=== PATIENT | female | born 1960 | race Hispanic/Latino ===

== ENCOUNTER 2017-07-06 13:12 | Outpatient (CLI) | payer BC ==
--- NOTE | 2017-07-06 14:07 | Mammography Report ---
Bilateral mammogram: Compared to 06/19/16. CAD study utilized. Findings: Predominance adipose tissue bilaterally. No mass or microcalcification. Benign axillary nodes. Impression: Benign findings. Annual followup recommended. BI-RADS CATEGORY: 2 = Benign ACR BI-RADS MAMMOGRAPHIC CODES: 0 = Needs additional imaging evaluation; 1 = Negative; 2 = Benign; 3 = Probably benign; 4 = Suspicious; 5 = Malignant; 6 = Known biopsy-proven malignancy COMMENT: 1. Dense breast tissue, i.e., adenosis, fibrocystic changes, etc., may obscure an underlying neoplasm. 2. Approximately 10% of cancers are not detected with mammography. 3. A negative mammography report should not delay biopsy if a clinically suspicious mass is present. COMMENT: Patient follow-up letters are generated in [employer].
== END 2017-07-06 13:13 | disposition home or self-care (01) ==
LOC: MAMMO 13:12
PROVIDERS: ATTEND Family Medicine
DX: Z12.31 Encounter for screening mammogram for malignant neoplasm of breast (principal)
CPT/HCPCS: 77067; G0202

== ENCOUNTER 2018-01-31 23:58 | Emergency (ER) | payer BC, OTHER ==
[2018-02-01 05:57] LABS: Basophils # (Auto) 0.1 K/mm3 (0.0-0.1); Basophils % (Auto) 0.8 % (0.0-1.8); Eosinophils # (Auto) 0.3 K/mm3 (0.0-0.4); Eosinophils % (Auto) 2.9 % (0.0-4.3); Hematocrit 34.8 % (30.3-42.9); Lymphocytes # (Auto) 1.8 K/mm3 (1.2-5.4); Lymphocytes % (Auto) 17.5 % (13.4-35.0); Mean Corpuscular HGB Conc 34 % (30-34); Mean Corpuscular Hemoglobin 28 pg (28-32); Mean Corpuscular Volume 80 fl (79-97); Monocytes % (Auto) 9.3 % (0.0-7.3); Platelet Count 493 K/mm3 (140-440); Red Blood Count 4.32 M/mm3 (3.65-5.03); Red Cell Distribution Width 16.2 % (13.2-15.2)
[2018-02-01 06:05] LABS: Calcium 9.4 mg/dL (8.4-10.2)
--- NOTE | 2018-02-01 07:05 | Emergency Department Report ---
ED General Adult HPI - General Chief complaint: Abdominal Pain Stated complaint: ABD PAIN Time Seen by Provider: 02/01/18 06:55 Source: patient, RN notes reviewed Mode of arrival: Ambulatory Limitations: No Limitations - History of Present Illness Initial comments: This is a 57-year-old female who was previously unknown to this provider, reports a past medical history of thyroid disease, schizophrenia, possible bowel obstruction. She denies a history of abdominal surgeries. She reports that she had been admitted to a hospital 7 or 8 years ago for "possible bowel obstruction." She indicates that she only stayed overnight in that hospital, and did not have any surgical intervention. The patient presents to the ER today with a complaint of inability to urinate. This has been present since Thursday. She denies abdominal pain, nausea, vomiting. She is passing gas, passing stool. She denies fevers. Denies all other complaints. -: Gradual Consistency: constant Improves with: none Worsens with: none Associated Symptoms: denies other symptoms - Related Data Home Medications Medication Instructions Recorded Confirmed Last Taken Iron Carb,Gl/FA/B12/C/Docusate 1 each PO DAILY 02/01/18 02/01/18 Unknown [Ferralet 90 Dual-Iron Tablet] Levothyroxine [Synthroid] 100 mcg PO QAM 02/01/18 02/01/18 Unknown Losartan/Hydrochlorothiazide 1 tab PO QDAY 02/01/18 02/01/18 Unknown [Losartan-Hctz 50-12.5 mg Tab] Montelukast [Singulair] 10 mg PO QPM 02/01/18 02/01/18 Unknown Verapamil [Calan] 240 mg PO DAILY 02/01/18 02/01/18 Unknown cloZAPine [Clozapine] 100 mg PO DAILY 02/01/18 02/01/18 Unknown Previous Rx's Medication Instructions Recorded Last Taken Type Nitrofurantoin Coal/M-Cryst 100 mg PO Q12HR #14 capsule 02/01/18 Unknown Rx [Macrobid CAP] Tamsulosin [Flomax] 0.4 mg PO QDAY #30 cap 02/01/18 Unknown Rx Allergies Allergy/AdvReac Type Severity Reaction Status Date / Time No Known Allergies Allergy Unverified 07/06/17 13:12 ED Review of Systems ROS: Stated complaint: ABD PAIN Other details as noted in HPI Comment: All other systems reviewed and negative ED Past Medical Hx - Past Medical History Hx Hypertension: Yes Hx Psychiatric Treatment: Yes (Schizophrenia) Additional medical history: Thyroid Disease, Allergies, Bowel Obstruction. - Surgical History Additional Surgical History: Tonsilectomy - Social History Smoking Status: Never Smoker Substance Use Type: None - Medications Home Medications: Home Medications Medication Instructions Recorded Confirmed Last Taken Type Iron Carb,Gl/FA/B12/C/Docusate 1 each PO DAILY 02/01/18 02/01/18 Unknown History [Ferralet 90 Dual-Iron Tablet] Levothyroxine [Synthroid] 100 mcg PO QAM 02/01/18 02/01/18 Unknown History Losartan/Hydrochlorothiazide 1 tab PO QDAY 02/01/18 02/01/18 Unknown History [Losartan-Hctz 50-12.5 mg Tab] Montelukast [Singulair] 10 mg PO QPM 02/01/18 02/01/18 Unknown History Nitrofurantoin Coal/M-Cryst 100 mg PO Q12HR #14 capsule 02/01/18 Unknown Rx [Macrobid CAP] Tamsulosin [Flomax] 0.4 mg PO QDAY #30 cap 02/01/18 Unknown Rx Verapamil [Calan] 240 mg PO DAILY 02/01/18 02/01/18 Unknown History cloZAPine [Clozapine] 100 mg PO DAILY 02/01/18 02/01/18 Unknown History ED Physical Exam - General Limitations: No Limitations General appearance: alert, in no apparent distress - Head Head exam: Present: atraumatic, normocephalic - Eye Eye exam: Present: normal appearance, EOMI. Absent: nystagmus - ENT ENT exam: Present: normal exam, normal orophraynx, mucous membranes moist, normal external ear exam - Neck Neck exam: Present: normal inspection, full ROM - Respiratory Respiratory exam: Present: normal lung sounds bilaterally. Absent: respiratory distress - Cardiovascular Cardiovascular Exam: Present: regular rate, normal rhythm, normal heart sounds. Absent: bradycardia, tachycardia, irregular rhythm, systolic murmur, diastolic murmur, rubs, gallop - GI/Abdominal GI/Abdominal exam: Present: soft, normal bowel sounds. Absent: distended, tenderness, guarding, rebound, rigid, pulsatile mass - Extremities Exam Extremities exam: Present: normal inspection, full ROM, normal capillary refill. Absent: pedal edema, joint swelling, calf tenderness - Back Exam Back exam: Present: normal inspection, full ROM. Absent: tenderness, CVA tenderness (R), paraspinal tenderness, vertebral tenderness - Neurological Exam Neurological exam: Present: alert, oriented X3, CN II-XII intact, normal gait, other (Extraocular movements intact. Tongue midline. No facial droop. Facial sensation intact to light touch in the V1, V2, V3 distribution bilaterally. 5 and 5 strength in 4 extremities.. Sensation is intact to light touch in 4 extremities.). Absent: motor sensory deficit - Psychiatric Psychiatric exam: Present: normal affect, normal mood - Skin Skin exam: Present: warm, dry, intact, normal color. Absent: rash ED Course Vital Signs 02/01/18 04:10 Temperature 97.9 F Pulse Rate 97 H Respiratory 16 Rate Blood Pressure 112/62 O2 Sat by Pulse 98 Oximetry ED Medical Decision Making - Lab Data Result diagrams: 02/01/18 05:16 02/01/18 05:16 Vital Signs 02/01/18 04:10 Temperature 97.9 F Pulse Rate 97 H Respiratory 16 Rate Blood Pressure 112/62 O2 Sat by Pulse 98 Oximetry Lab Results 02/01/18 02/01/18 Range/Units 05:16 05:16 WBC 10.5 (4.5-11.0) K/mm3 RBC 4.32 (3.65-5.03) M/mm3 Hgb 12.0 (10.1-14.3) gm/dl Hct 34.8 (30.3-42.9) % MCV 80 (79-97) fl MCH 28 (28-32) pg MCHC 34 (30-34) % RDW 16.2 H (13.2-15.2) % Plt Count 493 H (140-440) K/mm3 Lymph % (Auto) 17.5 (13.4-35.0) % Coal % (Auto) 9.3 H (0.0-7.3) % Eos % (Auto) 2.9 (0.0-4.3) % Baso % (Auto) 0.8 (0.0-1.8) % Lymph # 1.8 (1.2-5.4) K/mm3 Coal # 1.0 H (0.0-0.8) K/mm3 Eos # 0.3 (0.0-0.4) K/mm3 Baso # 0.1 (0.0-0.1) K/mm3 Seg Neutrophils % 69.5 (40.0-70.0) % Seg Neutrophils # 7.3 (1.8-7.7) K/mm3 Sodium 141 (137-145) mmol/L Potassium 3.9 (3.6-5.0) mmol/L Chloride 102.0 (98-107) mmol/L Carbon Dioxide 24 (22-30) mmol/L Anion Gap 19 mmol/L BUN 30 H (7-17) mg/dL Creatinine 1.2 (0.7-1.2) mg/dL Estimated GFR 46 ml/min BUN/Creatinine Ratio 25 % Glucose 107 H (65-100) mg/dL Calcium 9.4 (8.4-10.2) mg/dL - Medical Decision Making Differential diagnosis, including but not limited to: Urinary tract infection, obstructive uropathy, pelvic floor dysfunction, Assessment and plan: 57-year-old female with clinical obstructive uropathy. She has no abdominal pain or tenderness, she is defecating, eating, drinking, passing stool, passing flatness. She denies fevers, and abdominal pain. Therefore, doubt bowel obstruction. Physical exam is benign does not require emergent imaging at this time. Mcdaniel catheter was placed, and 150 mL of clear yellow urine were returned. Patient is currently draining urine at this time. I am currently awaiting a medication reconciliation. Patient will be since to follow up with outpatient urology for trial of void and further outpatient workup. Critical care attestation.: If time is entered above; I have spent that time in minutes in the direct care of this critically ill patient, excluding procedure time. ED Disposition Clinical Impression: Obstructive uropathy Disposition: DC-01 TO HOME OR SELFCARE Is pt being admited?: No Does the pt Need Aspirin: No Condition: Stable Instructions: Acute Urinary Retention in Women (ED) Additional Instructions: Keep the Mcdaniel catheter in place. Follow-up with the listed urology specialist within the next 5-7 days for trial of void. Cultures were sent today, results of be available in the next 3-5 days. Have your primary care doctor contact the medical record department to obtain culture results. Return to the ER right away with you pain, worsened pain, migration of pain, fevers, chills, lethargy, irritability, projectile vomiting, change in mental status, confusion , inability to tolerate liquid feeds. Prescriptions: Nitrofurantoin Coal/M-Cryst [Macrobid CAP] 100 mg PO Q12HR #14 capsule Tamsulosin [Flomax] 0.4 mg PO QDAY #30 cap Referrals: SELAM ROLLE MD [Staff Physician] - 3-5 Days
[2018-02-01 08:32] LABS: Bacteria,Urine 2+ /HPF (Negative); Bilirubin,Urine NEG (Negative); Blood,Urine NEG (Negative); Color,Urine Red (Yellow); Mucus,Urine FEW /HPF; Protein,Urine <15 mg/dL mg/dL (Negative); Urobilinogen,Urine < 2.0 mg/dL (<2.0)
[2018-02-01 08:55] VITALS: BP 108/49
== END 2018-02-01 09:30 | disposition home or self-care (01) ==
LOC: ED 23:58
DX: N13.9 Obstructive and reflux uropathy, unspecified (principal); I10 Essential (primary) hypertension; F20.9 Schizophrenia, unspecified; Z90.89 Acquired absence of other organs
CPT/HCPCS: 36415; 51702; 80048; 81001; 85025; 87086

== ENCOUNTER 2018-02-03 23:45 | Emergency (ER) | payer OTHER ==
[2018-02-04 00:02] VITALS: BP 125/43
--- NOTE | 2018-02-04 00:47 | Emergency Department Report ---
ED Female HPI - General Chief complaint: Urogenital-Female Stated complaint: CAN'T PEE Time Seen by Provider: 02/04/18 00:47 Source: patient Mode of arrival: Ambulatory Limitations: No Limitations - History of Present Illness Initial comments: Patient with indwelling Mcdaniel catheter for the past several days as a result of urinary retention, reports not being able to pass urine, with increasing lower abdominal discomfort, with a sense of urgency and constant sense of needing to urinate with a full bladder. She's not had any fever or chills or diaphoresis, and has not noticed any blood in her catheter bag. She was prescribed an antibiotic, but has not yet filled it, but has not had any constitutional symptoms. She reports not have any urine in her back for several hours this evening, but that it has just recently begun draining urine again after she arrived in the emergency department, although she still feels somewhat uncomfortable. -: Gradual, hour(s) (3-4) Radiation: non-radiating Severity: moderate Severity scale (0 -10): 8 Quality: sharp, aching, other (pressure-like, pushing) Consistency: constant - Related Data Home Medications Medication Instructions Recorded Confirmed Last Taken Iron Carb,Gl/FA/B12/C/Docusate 1 each PO DAILY 02/01/18 02/01/18 Unknown [Ferralet 90 Dual-Iron Tablet] Levothyroxine [Synthroid] 100 mcg PO QAM 02/01/18 02/01/18 Unknown Losartan/Hydrochlorothiazide 1 tab PO QDAY 02/01/18 02/01/18 Unknown [Losartan-Hctz 50-12.5 mg Tab] Montelukast [Singulair] 10 mg PO QPM 02/01/18 02/01/18 Unknown Verapamil [Calan] 240 mg PO DAILY 02/01/18 02/01/18 Unknown cloZAPine [Clozapine] 100 mg PO DAILY 02/01/18 02/01/18 Unknown Previous Rx's Medication Instructions Recorded Last Taken Type Nitrofurantoin [place]/M-Cryst 100 mg PO Q12HR #14 capsule 02/01/18 Unknown Rx [Macrobid CAP] Tamsulosin [Flomax] 0.4 mg PO QDAY #30 cap 02/01/18 Unknown Rx HYDROcodone/APAP 5-325 [[place] 1 - 2 each PO Q6HR PRN #15 tablet 02/04/18 Unknown Rx 5/325] Phenazopyridine [Pyridium] 200 mg PO TID PRN #10 tab 02/04/18 Unknown Rx Sulfamethoxazole/Trimethoprim 1 each PO BID #10 tablet 02/04/18 Unknown Rx [Bactrim DS TAB] Allergies Allergy/AdvReac Type Severity Reaction Status Date / Time No Known Allergies Allergy Unverified 07/06/17 13:12 ED Review of Systems ROS: Stated complaint: CAN'T PEE Other details as noted in HPI Comment: All other systems reviewed and negative Constitutional: denies: chills, diaphoresis, fever Eyes: denies: eye pain, eye discharge, vision change ENT: denies: ear pain, throat pain Respiratory: no symptoms reported Cardiovascular: as per HPI Endocrine: no symptoms reported Gastrointestinal: abdominal pain (lower abdomen), other (symptoms of urgency) Genitourinary: urgency. denies: hematuria Musculoskeletal: denies: back pain, joint swelling, arthralgia Skin: denies: rash, lesions Neurological: denies: headache, weakness, paresthesias Psychiatric: denies: anxiety, depression ED Past Medical Hx - Past Medical History Previous Medical History?: Yes Hx Hypertension: Yes Hx Psychiatric Treatment: Yes (Schizophrenia) Additional medical history: Thyroid Disease, Allergies, Bowel Obstruction. - Surgical History Past Surgical History?: Yes Additional Surgical History: Tonsilectomy - Social History Smoking Status: Never Smoker Substance Use Type: None - Medications Home Medications: Home Medications Medication Instructions Recorded Confirmed Last Taken Type Iron Carb,Gl/FA/B12/C/Docusate 1 each PO DAILY 02/01/18 02/01/18 Unknown History [Ferralet 90 Dual-Iron Tablet] Levothyroxine [Synthroid] 100 mcg PO QAM 02/01/18 02/01/18 Unknown History Losartan/Hydrochlorothiazide 1 tab PO QDAY 02/01/18 02/01/18 Unknown History [Losartan-Hctz 50-12.5 mg Tab] Montelukast [Singulair] 10 mg PO QPM 02/01/18 02/01/18 Unknown History Nitrofurantoin King/M-Cryst 100 mg PO Q12HR #14 capsule 02/01/18 Unknown Rx [Macrobid CAP] Tamsulosin [Flomax] 0.4 mg PO QDAY #30 cap 02/01/18 Unknown Rx Verapamil [Calan] 240 mg PO DAILY 02/01/18 02/01/18 Unknown History cloZAPine [Clozapine] 100 mg PO DAILY 02/01/18 02/01/18 Unknown History HYDROcodone/APAP 5-325 [[place] 1 - 2 each PO Q6HR PRN #15 tablet 02/04/18 Unknown Rx 5/325] Phenazopyridine [Pyridium] 200 mg PO TID PRN #10 tab 02/04/18 Unknown Rx Sulfamethoxazole/Trimethoprim 1 each PO BID #10 tablet 02/04/18 Unknown Rx [Bactrim DS TAB] ED Physical Exam - General Limitations: No Limitations General appearance: anxious, in distress (moderate discomfort, from constant abdominal pressure and aching) - Head Head exam: Present: atraumatic, normocephalic - Eye Eye exam: Present: normal appearance - ENT ENT exam: Present: mucous membranes moist - Neck Neck exam: Present: normal inspection - Respiratory Respiratory exam: Present: normal lung sounds bilaterally. Absent: respiratory distress - Cardiovascular Cardiovascular Exam: Present: regular rate, normal rhythm. Absent: systolic murmur, diastolic murmur, rubs, gallop - GI/Abdominal GI/Abdominal exam: Present: soft, tenderness (suprapubic area, without mass). Absent: guarding, rebound - Rectal Rectal exam: Present: deferred - Extremities Exam Extremities exam: Present: normal inspection - Back Exam Back exam: Absent: CVA tenderness (R), CVA tenderness (L), muscle spasm, paraspinal tenderness - Neurological Exam Neurological exam: Present: alert, oriented X3 - Psychiatric Psychiatric exam: Present: normal affect, normal mood - Skin Skin exam: Present: warm, dry, intact, normal color. Absent: rash ED Course Vital Signs 02/03/18 02/04/18 23:56 02:24 Temperature 98.1 F Pulse Rate 98 H Respiratory 18 18 Rate Blood Pressure 125/43 O2 Sat by Pulse 96 Oximetry - Reevaluation(s) Reevaluation #1: 02/04/18 01:54 Bladder scan performed, shows 199 mL of retained urine, but bag is continuing to drink clear urine. She still has some moderate discomfort. ED Medical Decision Making - Medical Decision Making Patient has signs of urinary tract infection with indwelling Mcdaniel catheter and since of bladder distention and constant discomfort. She did not take her antibiotics, and we will change her Mcdaniel catheter, but treat her for infection , treat her discomfort with phenazopyridine and hydrocodone. She is to follow with urologist later today. - Differential Diagnosis urinary retention, urinary tract infection Critical Care Time: No Critical care attestation.: If time is entered above; I have spent that time in minutes in the direct care of this critically ill patient, excluding procedure time. ED Disposition Clinical Impression: Acute trigonitis, Urinary retention with incomplete bladder emptying Urinary tract infection Qualifiers: Urinary tract infection type: catheter-associated UTI Indwelling urinary catheter type: indwelling urethral catheter Encounter type: initial encounter Qualified Code(s): T83.511A - Infection and inflammatory reaction due to indwelling urethral catheter, initial encounter Disposition: TO HOME OR SELFCARE Is pt being admited?: No Does the pt Need Aspirin: No Condition: Stable Additional Instructions: Continue with Bactrim for antibiotic control of infection Take Pyridium for discomfort up to 3 times per day Take hydrocodone for significant pain. Follow with urologist later today for further evaluation. Prescriptions: HYDROcodone/APAP 5-325 [[place] 5/325] 1 - 2 each PO Q6HR PRN #15 tablet PRN Reason: Pain Phenazopyridine [Pyridium] 200 mg PO TID PRN #10 tab PRN Reason: Pain Sulfamethoxazole/Trimethoprim [Bactrim DS TAB] 1 each PO BID #10 tablet
[2018-02-04] MEDS ORDERED: PYRIDIUM PO ONE (01:48)
[2018-02-04] MEDS ORDERED: BACTRIM DS PO ONE (01:49)
[2018-02-04] MEDS ORDERED: NORCO 7.5/325 PO ONE (01:49)
[2018-02-04 02:22] LABS: Bacteria,Urine 2+ /HPF (Negative); Bilirubin,Urine NEG (Negative); Blood,Urine LG (Negative); Color,Urine Yellow (Yellow); Protein,Urine <15 mg/dL mg/dL (Negative); Urobilinogen,Urine < 2.0 mg/dL (<2.0)
== END 2018-02-04 03:30 | disposition home or self-care (01) ==
LOC: ED 23:45
DX: T83.511A Infection and inflammatory reaction due to indwelling urethral catheter, initial encounter (principal); N30.30 Trigonitis without hematuria; R33.8 Other retention of urine; I10 Essential (primary) hypertension; F20.9 Schizophrenia, unspecified; Z90.89 Acquired absence of other organs; Y84.6 Urinary catheterization as the cause of abnormal reaction of the patient, or of later complication, without mention of misadventure at the time of the procedure; Y92.89 Other specified places as the place of occurrence of the external cause
CPT/HCPCS: 51702; 81001; 87076; 87086; 87186

== ENCOUNTER 2018-02-08 10:39 | Emergency (ER) | payer OTHER ==
--- NOTE | 2018-02-08 12:26 | Emergency Department Report ---
Blank Doc - Documentation Documentation: Patient is a 57-year-old female who is presenting with blood in her Mcdaniel catheter bag. Patient states that she has had a Mcdaniel for approximately 1 week secondary to urinary retention. Patient is a urology follow-up tomorrow. Patient noted that there is blood in her urine for last 24 hours. Patient also feels a fullness in the suprapubic region. Patiently moved to a treatment room for replacement of her Mcdaniel catheter will also check a urinalysis as well.
--- NOTE | 2018-02-08 12:26 | Emergency Department Report ---
ED Female HPI - General Chief complaint: Urogenital-Female Stated complaint: RUPURTED BLADDER Time Seen by Provider: 02/08/18 12:00 Source: patient Mode of arrival: Ambulatory Limitations: No Limitations - History of Present Illness Initial comments: 57-year-old female past medical history hypertension presents for complaint of sensation of bladder fullness despite having indwelling Mccord catheter and report of blood in urine in Mccord bag. Patient denies fevers chills nausea or vomiting. Patient states that she had Mccord placed on 01/31/18 8 days ago for urine retention and failure to void independently. Patient is awake alert and oriented 3 and nontoxic appearing. States she is currently taking Bactrim for UTI. MD Complaint: other (mccord cather issue) Onset/Timin -: days(s) Location: suprapubic Radiation: suprapubic Severity: mild Severity scale (0 -10): 4 Quality: aching Consistency: intermittent Improves with: urination - Related Data Home Medications Medication Instructions Recorded Confirmed Last Taken Iron Carb,Gl/FA/B12/C/Docusate 1 each PO DAILY 02/01/18 02/01/18 Unknown [F[place] 90 Dual-Iron Tablet] Levothyroxine [Synthroid] 100 mcg PO QAM 02/01/18 02/01/18 Unknown Losartan/Hydrochlorothiazide 1 tab PO QDAY 02/01/18 02/01/18 Unknown [Losartan-Hctz 50-12.5 mg Tab] Montelukast [Singulair] 10 mg PO QPM 02/01/18 02/01/18 Unknown Verapamil [Calan] 240 mg PO DAILY 02/01/18 02/01/18 Unknown cloZAPine [Clozapine] 100 mg PO DAILY 02/01/18 02/01/18 Unknown Previous Rx's Medication Instructions Recorded Last Taken Type Nitrofurantoin [place]/M-Cryst 100 mg PO Q12HR #14 capsule 02/01/18 Unknown Rx [Macrobid CAP] Tamsulosin [Flomax] 0.4 mg PO QDAY #30 cap 02/01/18 Unknown Rx HYDROcodone/APAP 5-325 [[place] 1 - 2 each PO Q6HR PRN #15 tablet 02/04/18 Unknown Rx 5/325] Phenazopyridine [Pyridium] 200 mg PO TID PRN #10 tab 02/04/18 Unknown Rx Sulfamethoxazole/Trimethoprim 1 each PO BID #10 tablet 02/04/18 Unknown Rx [Bactrim DS TAB] Ciprofloxacin HCl [Cipro] 500 mg PO BID #14 tablet 02/08/18 Unknown Rx Allergies Allergy/AdvReac Type Severity Reaction Status Date / Time No Known Allergies Allergy Unverified 07/06/17 13:12 ED Review of Systems ROS: Stated complaint: RUPURTED BLADDER Other details as noted in HPI Constitutional: denies: chills, fever Eyes: denies: eye pain, eye discharge, vision change ENT: denies: ear pain, throat pain Respiratory: denies: cough, shortness of breath, wheezing Cardiovascular: denies: chest pain, palpitations Endocrine: no symptoms reported Gastrointestinal: denies: abdominal pain, nausea, diarrhea Genitourinary: as per HPI, urgency. denies: dysuria, discharge Musculoskeletal: denies: back pain, joint swelling, arthralgia Skin: denies: rash, lesions Neurological: denies: headache, weakness, paresthesias Psychiatric: denies: anxiety, depression Hematological/Lymphatic: denies: easy bleeding, easy bruising ED Past Medical Hx - Past Medical History Previous Medical History?: Yes Hx Hypertension: Yes Hx Psychiatric Treatment: Yes (Schizophrenia) Additional medical history: Thyroid Disease, Allergies, Bowel Obstruction. Urinary retention - Surgical History Past Surgical History?: Yes Additional Surgical History: Tonsilectomy - Social History Smoking Status: Never Smoker Substance Use Type: Prescribed - Medications Home Medications: Home Medications Medication Instructions Recorded Confirmed Last Taken Type Iron Carb,Gl/FA/B12/C/Docusate 1 each PO DAILY 02/01/18 02/01/18 Unknown History [Ferralet 90 Dual-Iron Tablet] Levothyroxine [Synthroid] 100 mcg PO QAM 02/01/18 02/01/18 Unknown History Losartan/Hydrochlorothiazide 1 tab PO QDAY 02/01/18 02/01/18 Unknown History [Losartan-Hctz 50-12.5 mg Tab] Montelukast [Singulair] 10 mg PO QPM 02/01/18 02/01/18 Unknown History Nitrofurantoin [place]/M-Cryst 100 mg PO Q12HR #14 capsule 02/01/18 Unknown Rx [Macrobid CAP] Tamsulosin [Flomax] 0.4 mg PO QDAY #30 cap 02/01/18 Unknown Rx Verapamil [Calan] 240 mg PO DAILY 02/01/18 02/01/18 Unknown History cloZAPine [Clozapine] 100 mg PO DAILY 02/01/18 02/01/18 Unknown History HYDROcodone/APAP 5-325 [[place] 1 - 2 each PO Q6HR PRN #15 tablet 02/04/18 Unknown Rx 5/325] Phenazopyridine [Pyridium] 200 mg PO TID PRN #10 tab 02/04/18 Unknown Rx Sulfamethoxazole/Trimethoprim 1 each PO BID #10 tablet 02/04/18 Unknown Rx [Bactrim DS TAB] Ciprofloxacin HCl [Cipro] 500 mg PO BID #14 tablet 02/08/18 Unknown Rx ED Physical Exam - General Limitations: No Limitations General appearance: alert, in no apparent distress - Head Head exam: Present: atraumatic, normocephalic - Eye Eye exam: Present: normal appearance, PERRL, EOMI - ENT ENT exam: Present: mucous membranes moist - Neck Neck exam: Present: normal inspection - Respiratory Respiratory exam: Present: normal lung sounds bilaterally. Absent: respiratory distress - Cardiovascular Cardiovascular Exam: Present: regular rate, normal rhythm. Absent: systolic murmur, diastolic murmur, rubs, gallop - GI/Abdominal GI/Abdominal exam: Present: tenderness (slight suprapubic tenderness on palpation, Mccord catheter in place), normal bowel sounds - Extremities Exam Extremities exam: Present: normal inspection - Back Exam Back exam: Present: normal inspection - Neurological Exam Neurological exam: Present: alert, oriented X3 - Psychiatric Psychiatric exam: Present: normal affect, normal mood - Skin Skin exam: Present: warm, dry, intact, normal color. Absent: rash ED Course Vital Signs 02/08/18 10:43 Temperature 98.6 F Pulse Rate 93 H Respiratory 20 Rate Blood Pressure 123/66 O2 Sat by Pulse 95 Oximetry ED Medical Decision Making - Medical Decision Making A/P: Urinary tract infection, Mccord catheter hemorrhagic cystitis 1-Mccord catheter placed, draining. I used ultrasound to confirm placement. On bedside ultrasound Mccord catheter lumen is visible and inside bladder. Bladder does not appear distended. Patient is put out approximately 3-400 mL since changing Mccord catheter. It is possible it was obstructed briefly by either position or small clot secondary to hemorrhagic cystitis. Patient feels significant relief after Mccord change and urine is draining through catheter. 2-patient given trial of void. Stated she was unable to void on her own will replace Mccord catheter and patient can follow up tomorrow with her second appointment with outpatient neurology 3-patient has urine sample which is nitrites positive. Will switch the patient from Bactrim to course of ciprofloxacin. urine culture sent. 4- vital signs stable for discharge. Patient tolerating by mouth. Afebrile. Mccord catheter currently draining without difficulty. Critical care attestation.: If time is entered above; I have spent that time in minutes in the direct care of this critically ill patient, excluding procedure time. ED Disposition Clinical Impression: Cystitis, Encounter for Mccord catheter replacement Disposition: TO HOME OR SELFCARE Is pt being admited?: No Does the pt Need Aspirin: No Condition: Stable Instructions: Urinary Tract Infection in Women (ED), Mccord Catheter Insertion ( ED), Mccord Catheter Placement and Care (ED), Urinary Leg Bag (GEN) Additional Instructions: Patient advised to follow-up with her urology appt Prescriptions: Ciprofloxacin HCl [Cipro] 500 mg PO BID #14 tablet Referrals: JESSE BRAUN DO [Primary Care Provider] - 3-5 Days [facility] [Provider Group] - 3-5 Days Time of Disposition: 15:11
[2018-02-08 14:46] LABS: Bacteria,Urine 4+ /HPF (Negative); Bilirubin,Urine NEG (Negative); Blood,Urine LG (Negative); Color,Urine Amber (Yellow); Mucus,Urine FEW /HPF; Protein,Urine <15 mg/dL mg/dL (Negative)
[2018-02-08 16:06] VITALS: BP 132/57
== END 2018-02-08 16:08 | disposition home or self-care (01) ==
LOC: ED 10:39
DX: N30.90 Cystitis, unspecified without hematuria (principal); I10 Essential (primary) hypertension; F20.9 Schizophrenia, unspecified
CPT/HCPCS: 51702; 81001; 87086; 99282

== ENCOUNTER 2019-04-13 18:07 | Emergency (ER) | payer OTHER ==
[2019-04-13 18:15] VITALS: BP 110/84
--- NOTE | 2019-04-13 18:15 | Emergency Department Report ---
Blank Doc - Documentation Documentation: This is a 58-year-old female that presents with abdominal pain. Stated has not been able to have a bowel movement for 4 days. This initial assessment/diagnostic orders/clinical plan/treatment(s) is/are subject to change based on patient's health status, clinical progression and re- assessment by fellow clinical providers in the ED. Further treatment and workup at subsequent clinical providers discretion. Patient/guardians urged not to elope from the ED as their condition may be serious if not clinically assessed and managed. Initial orders include: 1- Patient sent to [facility] for further evaluation and treatment 2- labs 3- XR abd
[2019-04-13 18:50] LABS: Basophils % (Auto) 0.3 % (0.0-1.8); Eosinophils # (Auto) 0.1 K/mm3 (0.0-0.4); Eosinophils % (Auto) 1.1 % (0.0-4.3); Hematocrit 33.3 % (30.3-42.9); Lymphocytes # (Auto) 1.1 K/mm3 (1.2-5.4); Lymphocytes % (Auto) 8.8 % (13.4-35.0); Mean Corpuscular HGB Conc 33 % (30-34); Mean Corpuscular Volume 81 fl (79-97); Monocytes # (Auto) 0.8 K/mm3 (0.0-0.8); Monocytes % (Auto) 6.6 % (0.0-7.3); Platelet Count 476 K/mm3 (140-440); Red Blood Count 4.12 M/mm3 (3.65-5.03); Red Cell Distribution Width 15.4 % (13.2-15.2)
--- NOTE | 2019-04-13 19:19 | XRay Report ---
ACUTE ABDOMINAL SERIES INDICATION / CLINICAL INFORMATION: Abdominal pain; no bowel movement for 4 days. COMPARISON: None available. FINDINGS: Upright and supine views of the abdomen demonstrate multiple dilated featureless bowel loops in the u pper and lower abdomen with differential air-fluid levels. The distribution is somewhat unusual and t he findings may represent a combination of dilated colon and small bowel or just dilated small bowel. Has the patient had bowel surgery High-grade distal small bowel obstruction is suspected. I see no e vidence of free air or mass effect. The accompanying chest radiograph reveals a normal heart size and clear lungs. IMPRESSION: Abnormal bowel gas pattern is nonspecific, but characteristic of obstruction. High-grade small bowel obstruction is suspected. Signer Name: Melvin Stockton MD Signed: 04/13/2019 7:15 PM Workstation Name: [id number]
[2019-04-13 19:25] LABS: Calcium 9.7 mg/dL (8.4-10.2)
[2019-04-13 20:07] LABS: Bilirubin,Urine NEG (Negative); Blood,Urine NEG (Negative); Color,Urine Straw (Yellow); Mucus,Urine FEW /HPF; Protein,Urine <15 mg/dL mg/dL (Negative); Urobilinogen,Urine < 2.0 mg/dL (<2.0)
--- NOTE | 2019-04-13 21:42 | Cat Scan Report ---
CT abdomen pelvis w con INDICATION: abdominal pain. Constipation x4 days. TECHNIQUE: All CT scans at this location are performed using the following dose modulation technique: Automated exposure control. Limited by respiratory artifact. CONTRAST: Omnipaque 300, 100 cc IV injection. COMPARISON: None available. CT abdomen: The parenchymal organs are grossly unremarkable. Negative for abdominal mass, adenopathy or fluid collection. Atherosclerotic calcification is noted the aorta. Colon is mildly distended and thick-walled. CT PELVIS: Negative for pelvic mass or fluid. Moderate colonic stool is seen distally. IMPRESSION: 1. Suspect mild colitis. Moderate colonic stool is noted distally. 2. Evaluation limited by significant respiratory artifact. Signer Name: Alli Gonzalez MD Signed: 04/13/2019 9:37 PM Workstation Name: [id number]
[2019-04-13] MEDS ORDERED: FLAGYL 500 MG/100 ML 500 MG/100 ML BAG IV ONE (22:25)
[2019-04-13] MEDS ORDERED: LEVAQUIN PO ONE (22:25)
[2019-04-13] MEDS ORDERED: MORPHINE IV ONE (22:26)
[2019-04-13] MEDS ORDERED: ZOFRAN IV ONE (22:26)
[2019-04-13] MEDS ORDERED: CITRATE OF MAGNESIA PO ONE (22:46)
[2019-04-13] MEDS ORDERED: ZOFRAN ODT PO ONE (23:54)
[2019-04-13] MEDS ORDERED: ZOFRAN ODT ONE (23:55)
[2019-04-14] MEDS ORDERED: REGLAN IV ONE (00:14)
[2019-04-14] MEDS ORDERED: CITRATE OF MAGNESIA PO ONE (00:14)
--- NOTE | 2019-04-14 01:13 | Emergency Department Report ---
ED Abdominal Pain HPI - General Chief Complaint: Abdominal Pain Stated Complaint: CONSTIPATED Time Seen by Provider: 04/13/19 18:14 Source: patient Mode of arrival: Ambulatory Limitations: No Limitations - History of Present Illness Initial Comments: Patient is a 58-year-old white female with history of hypertension presents to the ED with a complaint of acute onset of persistent diffuse abdominal pain and nausea the last 4 days. Patient also states that she has not had any bowel movement in 4 days which is not normal for her. Patient denies dysuria, urinary frequency and urgency, dizziness, headache, chest pain, shortness of breath, cough, fever, chills, vaginal bleeding, diarrhea, or sore throat. MD Complaint: abdominal pain, other (Constipation) -: Sudden, days(s) (4) Location: diffuse, suprapubic Radiation: suprapubic Migration to: no migration Severity: moderate Severity scale (0 -10): 6 Quality: cramping, aching, sharp Consistency: constant Improves With: nothing Worsens With: nothing Associated Symptoms: denies other symptoms, nausea, constipation. denies: vomiting, diarrhea, fever, chills, dysuria, hematemesis, hematochezia, melena, hematuria, anorexia, syncope - Related Data Home Medications Medication Instructions Recorded Confirmed Last Taken Iron Carb,Gl/FA/B12/C/Docusate 1 each PO DAILY 02/01/18 02/01/18 Unknown [Ferralet 90 Dual-Iron Tablet] Levothyroxine [Synthroid] 100 mcg PO QAM 02/01/18 02/01/18 Unknown Losartan/Hydrochlorothiazide 1 tab PO QDAY 02/01/18 02/01/18 Unknown [Losartan-Hctz 50-12.5 mg Tab] Montelukast [Singulair] 10 mg PO QPM 02/01/18 02/01/18 Unknown Verapamil [Calan] 240 mg PO DAILY 02/01/18 02/01/18 Unknown cloZAPine [Clozapine] 100 mg PO DAILY 02/01/18 02/01/18 Unknown Previous Rx's Medication Instructions Recorded Last Taken Type Nitrofurantoin [place]/M-Cryst 100 mg PO Q12HR #14 capsule 02/01/18 Unknown Rx [Macrobid CAP] Tamsulosin [Flomax] 0.4 mg PO QDAY #30 cap 04/30/18 Unknown Rx HYDROcodone/APAP 5-325 [[place] 1 - 2 each PO Q6HR PRN #15 tablet 02/04/18 Unknown Rx 5/325] Phenazopyridine [Pyridium] 200 mg PO TID PRN #10 tab 02/04/18 Unknown Rx Sulfamethoxazole/Trimethoprim 1 each PO BID #10 tablet 02/04/18 Unknown Rx [Bactrim DS TAB] Ciprofloxacin HCl [Cipro] 500 mg PO BID #14 tablet 02/08/18 Unknown Rx Ciprofloxacin HCl [Ciprofloxacin 500 mg PO Q12HR #20 tab 04/14/19 Unknown Rx TAB] Dicyclomine [Bentyl] 20 mg PO Q6H PRN #24 tablet 04/14/19 Unknown Rx Magnesium Citrate [Citrate of 300 ml PO ONCE #2 bottle 04/14/19 Unknown Rx Magnesia] Ondansetron [Zofran Odt] 4 mg PO Q8HR PRN #15 tab.rapdis 04/14/19 Unknown Rx metroNIDAZOLE [Flagyl] 500 mg PO Q8HR #30 tablet 04/14/19 Unknown Rx Allergies Allergy/AdvReac Type Severity Reaction Status Date / Time No Known Allergies Allergy Verified 04/13/19 23:59 ED Review of Systems ROS: Stated complaint: CONSTIPATED Other details as noted in HPI Constitutional: denies: chills, fever Eyes: denies: eye pain, eye discharge, vision change ENT: denies: ear pain, throat pain Respiratory: denies: cough, shortness of breath, wheezing Cardiovascular: denies: chest pain, palpitations Endocrine: no symptoms reported Gastrointestinal: abdominal pain, nausea, constipation. denies: diarrhea Genitourinary: denies: urgency, dysuria, discharge Musculoskeletal: denies: back pain, joint swelling, arthralgia Skin: denies: rash, lesions Neurological: denies: headache, weakness, paresthesias Psychiatric: denies: anxiety, depression Hematological/Lymphatic: denies: easy bleeding, easy bruising ED Past Medical Hx - Past Medical History Hx Hypertension: Yes Hx Psychiatric Treatment: Yes (Schizophrenia) Additional medical history: Thyroid Disease, Allergies, Bowel Obstruction. Urinary retention - Surgical History Past Surgical History?: Yes Additional Surgical History: Tonsilectomy - Social History Smoking Status: Never Smoker Substance Use Type: None - Medications Home Medications: Home Medications Medication Instructions Recorded Confirmed Last Taken Type Iron Carb,Gl/FA/B12/C/Docusate 1 each PO DAILY 02/01/18 02/01/18 Unknown History [Ferralet 90 Dual-Iron Tablet] Levothyroxine [Synthroid] 100 mcg PO QAM 02/01/18 02/01/18 Unknown History Losartan/Hydrochlorothiazide 1 tab PO QDAY 02/01/18 02/01/18 Unknown History [Losartan-Hctz 50-12.5 mg Tab] Montelukast [Singulair] 10 mg PO QPM 02/01/18 02/01/18 Unknown History Nitrofurantoin [place]/M-Cryst 100 mg PO Q12HR #14 capsule 02/01/18 Unknown Rx [Macrobid CAP] Tamsulosin [Flomax] 0.4 mg PO QDAY #30 cap 02/01/18 Unknown Rx Verapamil [Calan] 240 mg PO DAILY 02/01/18 02/01/18 Unknown History cloZAPine [Clozapine] 100 mg PO DAILY 02/01/18 02/01/18 Unknown History HYDROcodone/APAP 5-325 [[place] 1 - 2 each PO Q6HR PRN #15 tablet 02/04/18 Unknown Rx 5/325] Phenazopyridine [Pyridium] 200 mg PO TID PRN #10 tab 02/04/18 Unknown Rx Sulfamethoxazole/Trimethoprim 1 each PO BID #10 tablet 02/04/18 Unknown Rx [Bactrim DS TAB] Ciprofloxacin HCl [Cipro] 500 mg PO BID #14 tablet 02/08/18 Unknown Rx Ciprofloxacin HCl [Ciprofloxacin 500 mg PO Q12HR #20 tab 04/14/19 Unknown Rx TAB] Dicyclomine [Bentyl] 20 mg PO Q6H PRN #24 tablet 04/14/19 Unknown Rx Magnesium Citrate [Citrate of 300 ml PO ONCE #2 bottle 04/14/19 Unknown Rx Magnesia] Ondansetron [Zofran Odt] 4 mg PO Q8HR PRN #15 tab.rapdis 04/14/19 Unknown Rx metroNIDAZOLE [Flagyl] 500 mg PO Q8HR #30 tablet 04/14/19 Unknown Rx ED Physical Exam - General Limitations: No Limitations General appearance: alert, in no apparent distress - Head Head exam: Present: atraumatic, normocephalic, normal inspection - Eye Eye exam: Present: normal appearance, PERRL, EOMI. Absent: scleral icterus, conjunctival injection, nystagmus Pupils: Present: normal accommodation - ENT ENT exam: Present: normal exam, normal orophraynx, mucous membranes moist, TM's normal bilaterally, normal external ear exam - Neck Neck exam: Present: normal inspection, full ROM - Respiratory Respiratory exam: Present: normal lung sounds bilaterally. Absent: respiratory distress, wheezes, rales, rhonchi, chest wall tenderness, accessory muscle use, decreased breath sounds, prolonged expiratory - Cardiovascular Cardiovascular Exam: Present: normal rhythm, tachycardia, normal heart sounds. Absent: systolic murmur, diastolic murmur, rubs, gallop - GI/Abdominal GI/Abdominal exam: Present: soft, tenderness (diffusely), normal bowel sounds. Absent: guarding, rebound, hypoactive bowel sounds, organomegaly - Rectal Rectal exam: Present: deferred - Extremities Exam Extremities exam: Present: normal inspection, full ROM, normal capillary refill. Absent: pedal edema, joint swelling - Back Exam Back exam: Present: normal inspection, full ROM. Absent: tenderness, CVA tenderness (R), CVA tenderness (L), muscle spasm, paraspinal tenderness, vertebral tenderness - Neurological Exam Neurological exam: Present: alert, oriented X3, CN II-XII intact, normal gait, reflexes normal - Psychiatric Psychiatric exam: Present: normal affect, normal mood - Skin Skin exam: Present: warm, dry, intact, normal color. Absent: rash ED Course Vital Signs 04/13/19 18:14 Temperature 98.1 F Pulse Rate 101 H Respiratory 16 Rate Blood Pressure 110/84 O2 Sat by Pulse 98 Oximetry - Reevaluation(s) Reevaluation #1: 04/14/19 01:17 Patient is alert and oriented 3 and is not in distress, slightly tachycardic and in no acute distress. Lab test results were reviewed and significant for acute leukocytosis of 12,100, and BUN of 33. The rest of the lab tests results are unremarkable. The patient was treated for pain, constipation and nausea. The abdomen series x-ray shows abnormal bowel gas pattern which is nonspecific but characteristic of bowel obstruction. High-grade small bowel obstruction cannot be ruled out. Abdomen pelvis CT scan with contrast shows colon which is mildly distended and the suspicious for mild colitis. There is also moderate colonic stool noted distally. Patient was treated in the ED with Flagyl and a milligram IV 1 and Levaquin 500 mg by mouth 1. On reevaluation, patient resting comfortably and was given magnesium citrate solution to take home. Patient has returned to the ED immediately if symptoms get worse. Patient is advised to follow-up with her primary care physician in 5-7 days for reevaluation. 04/14/19 01:18 04/14/19 01:20 ED Medical Decision Making - Lab Data Result diagrams: 04/13/19 18:29 04/13/19 18:29 - Radiology Data Radiology results: report reviewed, image reviewed [address] [address] XRay Report Signed Patient: YANIV PINA MR#: [id number] : 1960 Acct:[id number] Age/Sex: 58 / F ADM Date: 04/13/19 Loc: ED Attending Dr: Ordering Physician: KIM VERNON NP Date of Service: 04/13/19 Procedure(s): XR abd series w cxr 1V Accession Number(s): [id number] cc: KIM VERNON NP Fluoro Time In Minutes: ACUTE ABDOMINAL SERIES INDICATION / CLINICAL INFORMATION: Abdominal pain; no bowel movement for 4 days. COMPARISON: None available. FINDINGS: Upright and supine views of the abdomen demonstrate multiple dilated featureless bowel loops in the upper and lower abdomen with differential air-fluid levels. The distribution is somewhat unusual and the findings may represent a combination of dilated colon and small bowel or jus t dilated small bowel. Has the patient had bowel surgery High-grade distal small bowel obstruction is suspected. I see no evidence of free air or mass effect. The accompanying chest radiograph reveals a normal heart size and clear lungs. IMPRESSION: Abnormal bowel gas pattern is nonspecific, but characteristic of obstruction. High- grade small bowel obstruction is suspected. Signer Name: Melvin Stockton MD Signed: 04/13/2019 7:15 PM Workstation Name: [id number] Transcribed By: RT Dictated By: Melvin Stockton MD Electronically Authenticated By: Melvin Stockton MD Signed Date/Time: 04/13/191914 DD/ 09 TD/TT: [address] [address] Cat Scan Report Signed Patient: YANIV PINA MR#: [id number] : 1960 Acct:[id number] Age/Sex: 58 / F ADM Date: 04/13/19 Loc: ED Attending Dr: Ordering Physician: RODRIGO CHAMBERS Date of Service: 04/13/19 Procedure(s): CT abdomen pelvis w con Accession Number(s): [id number] cc: RODRIGO CHAMBERS CT abdomen pelvis w con INDICATION: abdominal pain. Constipation x4 days. TECHNIQUE: All CT scans at this location are performed using the following dose modulation technique: Automated exposure control. Limited by respiratory artifact. CONTRAST: Omnipaque 300, 100 cc IV injection. COMPARISON: None available. CT abdomen: The parenchymal organs are grossly unremarkable. Negative for abdominal mass, adenopathy or fluid collection. Atherosclerotic calcification is noted the aorta. Colon is mildly distended and thick-walled. CT PELVIS: Negative for pelvic mass or fluid. Moderate colonic stool is seen distally. IMPRESSION: 1. Suspect mild colitis. Moderate colonic stool is noted distally. 2. Evaluation limited by significant respiratory artifact. Signer Name: Alli Gonzalez MD Signed: 04/13/2019 9:37 PM Workstation Name: [id number] Transcribed By: ES Dictated By: Alli Gonzalez MD Electronically Authenticated By: Alli Gonzalez MD Signed Date/Time: 04/13/192136 DD/ 32 TD/TT: - Medical Decision Making Patient is alert and oriented 3 and is not in distress, slightly tachycardic and in no acute distress. Lab test results were reviewed and significant for acute leukocytosis of 12,100, and BUN of 33. The rest of the lab tests results are unremarkable. The patient was treated for pain, constipation and nausea. The abdomen series x-ray shows abnormal bowel gas pattern which is nonspecific but characteristic of bowel obstruction. High-grade small bowel obstruction cannot be ruled out. Abdomen pelvis CT scan with contrast shows colon which is mildly distended and the suspicious for mild colitis. There is also moderate colonic stool noted distally. Patient was treated in the ED with Flagyl and a milligram IV 1 and Levaquin 500 mg by mouth 1. On reevaluation, patient resting comfortably and was given magnesium citrate solution to take home. Patient has returned to the ED immediately if symptoms get worse. Patient is advised to follow-up with her primary care physician in 5-7 days for reevaluation - Differential Diagnosis abdominal pain; SBO, Acute colitis, acute diverticulitis, constipation Critical care attestation.: If time is entered above; I have spent that time in minutes in the direct care of this critically ill patient, excluding procedure time. ED Disposition Clinical Impression: Colitis Abdominal pain Qualifiers: Abdominal location: generalized Qualified Code(s): R10.84 - Generalized abdominal pain Constipation Qualifiers: Constipation type: unspecified constipation type Qualified Code(s): K59.00 - Constipation, unspecified Disposition: TO HOME OR SELFCARE Is pt being admited?: No Does the pt Need Aspirin: No Condition: Stable Instructions: Abdominal Pain (ED), Infectious Colitis (ED), Constipation (ED) Additional Instructions: Take medications with food, drink plenty of fluids and follow up with your primary care physician in 3-5 days for reevaluation. Return to the ED immedi ately if symptoms get worse. Prescriptions: Dicyclomine [Bentyl] 20 mg PO Q6H PRN #24 tablet PRN Reason: Pain , Severe (7-10) Ciprofloxacin HCl [Ciprofloxacin TAB] 500 mg PO Q12HR #20 tab Magnesium Citrate [Citrate of Magnesia] 300 ml PO ONCE #2 bottle metroNIDAZOLE [Flagyl] 500 mg PO Q8HR #30 tablet Ondansetron [Zofran Odt] 4 mg PO Q8HR PRN #15 tab.rapdis PRN Reason: Nausea Referrals: SOLO BOND MD [Primary Care Provider] - 3-5 Days Time of Disposition: :09 Print Language: BELIZEAN
== END 2019-04-14 01:30 | disposition home or self-care (01) ==
LOC: ED 18:07
DX: K52.9 Noninfective gastroenteritis and colitis, unspecified (principal); K59.00 Constipation, unspecified; F20.9 Schizophrenia, unspecified; Z79.899 Other long term (current) drug therapy; Z90.89 Acquired absence of other organs
CPT/HCPCS: 36415; 74022; 74177; 80048; 81001; 85025; 96365; 96375; 99284; J2270; J2405; J2765; Q9967; Q0162

== ENCOUNTER 2019-04-20 21:25 | Inpatient (IN) | payer OTHER ==
--- NOTE | 2019-04-20 21:35 | Event Note ---
ED Screening Note ED Screening Note: here last week inc abd pain nausea no bm in several days hx bowel obstructions This initial assessment/diagnostic orders/clinical plan/treatment(s) is/are subject to change based on patients health status, clinical progression and re- assessment by fellow clinical providers in the ED. Further treatment and workup at subsequent clinical providers discretion. Patient/guardian urged not to elope from the ED as their condition may be serious if not clinically assessed and managed. Initial orders include: labs ua ct
[2019-04-20 21:48] LABS: Hematocrit 33.7 % (30.3-42.9); Hemoglobin 11.2 gm/dl (10.1-14.3); Mean Corpuscular HGB Conc 33 % (30-34); Mean Corpuscular Volume 80 fl (79-97); Platelet Count 455 K/mm3 (140-440); Red Blood Count 4.23 M/mm3 (3.65-5.03); Red Cell Distribution Width 15.5 % (13.2-15.2)
[2019-04-20 22:05] LABS: Albumin 3.9 g/dL (3.9-5); Calcium 9.3 mg/dL (8.4-10.2)
[2019-04-21] MEDS ORDERED: NACL 0.9% 1000 ML 1,000 ML IV ONE (01:37)
--- NOTE | 2019-04-21 02:19 | Cat Scan Report ---
CT abdomen pelvis w con INDICATION / CLINICAL INFORMATION: ABD PAIN; NO BM FOR SEVERAL DAYS. TECHNIQUE: All CT scans at this location are performed using CT dose reduction for ALARA by means of automated e xposure control. COMPARISON: 04/13/2019 FINDINGS: Limited lower thoracic images show no acute findings. ABDOMEN: There are no significant abnormalities of the gallbladder, liver, spleen pancreas or kidneys. Pelvic images show fluid distention of the entire colon and rectum. There are edematous changes in the abdominal ileum that have the improved since the previous study. Mild residual colon wall thickening is noted in the hepatic flexure. The distal jejunum and ileum are moderately distended with fluid. No evidence of pneumatosis or free fluid collections in the pelvis. Skeletal structures are unremarkable for SI joint sclerosis. IMPRESSION: 1. Interval improvement of what appears to be regional enteritis with decreased edema of the distal s mall bowel and right colon. 2. There is moderate persistent fluid distention of mid and distal small bowel as well-seen entire co avi. Signer Name: Geoffrey Oshea MD Signed: 04/21/2019 2:15 AM Workstation Name: [id number]
[2019-04-21] MEDS ORDERED: ZOFRAN IV ONE (02:57)
--- NOTE | 2019-04-21 03:33 | Emergency Department Report ---
ED Abdominal Pain HPI - General Chief Complaint: Abdominal Pain Stated Complaint: UNABLE TO URINATE OR DEFICATE Time Seen by Provider: 04/20/19 21:32 Source: patient, old records reviewed Mode of arrival: Ambulatory Limitations: No Limitations - History of Present Illness Initial Comments: 58-year-old female with a past medical history of hypertension, schizophrenia, thyroid disease and previous "bowel obstruction and urinary retention presents to the hospital with complaints of continued constipation, Karina pain, nausea 1 week. Patient was seen here April 13 with similar symptoms. She had a CT abdomen and pelvis with IV contrast at that time suggestive of mild colitis with moderate colonic stool distally. Patient states she has not had a good bowel movement in 5-7 days and states that she has had a small amount of stool output only. She did have a little bit a urine output 20 minutes ago however, no sample was collected. Patient was prescribed Flagyl, Zofran, mag citrate, Bentyl, and Cipro and reports she is compliant with medications except for this evening's dose and has not had any significant improvement in her symptoms. She reports a history of bowel obstruction denies previous bowel surgeries. - Related Data Home Medications Medication Instructions Recorded Confirmed Last Taken Iron Carb,Gl/FA/B12/C/Docusate 1 each PO DAILY 02/01/18 02/01/18 Unknown [Ferralet 90 Dual-Iron Tablet] Levothyroxine [Synthroid] 100 mcg PO QAM 02/01/18 02/01/18 Unknown Losartan/Hydrochlorothiazide 1 tab PO QDAY 02/01/18 02/01/18 Unknown [Losartan-Hctz 50-12.5 mg Tab] Montelukast [Singulair] 10 mg PO QPM 02/01/18 02/01/18 Unknown Verapamil [Calan] 240 mg PO DAILY 02/01/18 02/01/18 Unknown cloZAPine [Clozapine] 100 mg PO DAILY 02/01/18 02/01/18 Unknown Previous Rx's Medication Instructions Recorded Last Taken Type Nitrofurantoin [place]/M-Cryst 100 mg PO Q12HR #14 capsule 02/01/18 Unknown Rx [Macrobid CAP] Tamsulosin [Flomax] 0.4 mg PO QDAY #30 cap 02/01/18 Unknown Rx HYDROcodone/APAP 5-325 [[place] 1 - 2 each PO Q6HR PRN #15 tablet 02/04/18 Unknown Rx 5/325] Phenazopyridine [Pyridium] 200 mg PO TID PRN #10 tab 02/04/18 Unknown Rx Sulfamethoxazole/Trimethoprim 1 each PO BID #10 tablet 02/04/18 Unknown Rx [Bactrim DS TAB] Ciprofloxacin HCl [Cipro] 500 mg PO BID #14 tablet 02/08/18 Unknown Rx Ciprofloxacin HCl [Ciprofloxacin 500 mg PO Q12HR #20 tab 04/14/19 Unknown Rx TAB] Dicyclomine [Bentyl] 20 mg PO Q6H PRN #24 tablet 04/14/19 Unknown Rx Magnesium Citrate [Citrate of 300 ml PO ONCE #2 bottle 04/14/19 Unknown Rx Magnesia] Ondansetron [Zofran Odt] 4 mg PO Q8HR PRN #15 tab.rapdis 04/14/19 Unknown Rx metroNIDAZOLE [Flagyl] 500 mg PO Q8HR #30 tablet 04/14/19 Unknown Rx Allergies Allergy/AdvReac Type Severity Reaction Status Date / Time No Known Allergies Allergy Verified 04/13/19 23:59 ED Review of Systems ROS: Stated complaint: UNABLE TO URINATE OR DEFICATE Other details as noted in HPI Comment: All other systems reviewed and negative ED Past Medical Hx - Past Medical History Previous Medical History?: Yes Hx Hypertension: Yes Hx Psychiatric Treatment: Yes (Schizophrenia) Additional medical history: Thyroid Disease, Allergies, Bowel Obstruction. Urinary retention - Surgical History Past Surgical History?: Yes Additional Surgical History: Tonsilectomy - Social History Smoking Status: Never Smoker Substance Use Type: None - Medications Home Medications: Home Medications Medication Instructions Recorded Confirmed Last Taken Type Iron Carb,Gl/FA/B12/C/Docusate 1 each PO DAILY 02/01/18 02/01/18 Unknown History [Ferralet 90 Dual-Iron Tablet] Levothyroxine [Synthroid] 100 mcg PO QAM 02/01/18 02/01/18 Unknown History Losartan/Hydrochlorothiazide 1 tab PO QDAY 02/01/18 02/01/18 Unknown History [Losartan-Hctz 50-12.5 mg Tab] Montelukast [Singulair] 10 mg PO QPM 02/01/18 02/01/18 Unknown History Nitrofurantoin [place]/M-Cryst 100 mg PO Q12HR #14 capsule 02/01/18 Unknown Rx [Macrobid CAP] Tamsulosin [Flomax] 0.4 mg PO QDAY #30 cap 02/01/18 Unknown Rx Verapamil [Calan] 240 mg PO DAILY 02/01/18 02/01/18 Unknown History cloZAPine [Clozapine] 100 mg PO DAILY 02/01/18 02/01/18 Unknown History HYDROcodone/APAP 5-325 [Portal 1 - 2 each PO Q6HR PRN #15 tablet 02/04/18 Unknown Rx 5/325] Phenazopyridine [Pyridium] 200 mg PO TID PRN #10 tab 02/04/18 Unknown Rx Sulfamethoxazole/Trimethoprim 1 each PO BID #10 tablet 02/04/18 Unknown Rx [Bactrim DS TAB] Ciprofloxacin HCl [Cipro] 500 mg PO BID #14 tablet 02/08/18 Unknown Rx Ciprofloxacin HCl [Ciprofloxacin 500 mg PO Q12HR #20 tab 04/14/19 Unknown Rx TAB] Dicyclomine [Bentyl] 20 mg PO Q6H PRN #24 tablet 04/14/19 Unknown Rx Magnesium Citrate [Citrate of 300 ml PO ONCE #2 bottle 04/14/19 Unknown Rx Magnesia] Ondansetron [Zofran Odt] 4 mg PO Q8HR PRN #15 tab.rapdis 04/14/19 Unknown Rx metroNIDAZOLE [Flagyl] 500 mg PO Q8HR #30 tablet 04/14/19 Unknown Rx ED Physical Exam - General Limitations: No Limitations - Other Other exam information: General: No limitations, patient is alert in no acute distress Head exam: Atraumatic, normocephalic Eyes exam: Normal appearance, pupils equal reactive to light, extraocular movements intact ENT: Moist mucous membrane, normal oropharynx Neck exam: Normal inspection, full range of motion, no meningismus nontender Respiratory exam: Clear to auscultation bilateral, no wheezes, rales, crackles Cardiovascular: Normal rate and rhythm, normal heart sounds Abdomen: Soft, increased bowel sounds, generalized abdominal tenderness, no rebound or guarding Extremity: Full range of motion normal inspection no deformity Back: Normal Inspection, full range of motion, no tenderness Neurologic: Alert, oriented x3, cranial nerves intact, no motor or sensory deficit Psychiatric: normal affect, normal mood Skin: Warm, dry, intact ED Course Vital Signs 04/20/19 04/21/19 21:35 04:20 Temperature 98.3 F 98 F Pulse Rate 107 H 93 H Respiratory 16 16 Rate Blood Pressure 125/69 Blood Pressure 113/58 [Left] O2 Sat by Pulse 98 96 Oximetry - Consultations Consultation #1: 04/21/19 case d/w Dr Armstrong at 03:31. will consult during admission ED Medical Decision Making - Lab Data Result diagrams: 04/20/19 21:39 04/20/19 21:39 Lab Results 04/20/19 04/20/19 04/21/19 Range/Units 21:39 21:39 04:10 WBC 11.2 H (4.5-11.0) K/mm3 RBC 4.23 (3.65-5.03) M/mm3 Hgb 11.2 (10.1-14.3) gm/dl Hct 33.7 (30.3-42.9) % MCV 80 (79-97) fl MCH 27 L (28-32) pg MCHC 33 (30-34) % RDW 15.5 H (13.2-15.2) % Plt Count 455 H (140-440) K/mm3 Sodium 127 L (137-145) mmol/L Potassium 3.6 (3.6-5.0) mmol/L Chloride 88.4 L (98-107) mmol/L Carbon Dioxide 25 (22-30) mmol/L Anion Gap 17 mmol/L BUN 14 (7-17) mg/dL Creatinine 1.1 (0.7-1.2) mg/dL Estimated GFR 51 ml/min BUN/Creatinine Ratio 13 % Glucose 104 H (65-100) mg/dL Calcium 9.3 (8.4-10.2) mg/dL Total Bilirubin 0.20 (0.1-1.2) mg/dL AST 26 (5-40) units/L ALT 30 (7-56) units/L Alkaline Phosphatase 98 (35-129) units/L Total Protein 7.1 (6.3-8.2) g/dL Albumin 3.9 (3.9-5) g/dL Albumin/Globulin Ratio 1.2 % Lipase 77 H (13-60) units/L Urine Color Straw (Yellow) Urine Turbidity Clear (Clear) Urine pH 7.0 (5.0-7.0) Ur Specific [place] 1.026 (1.003-1.030) Urine Protein <15 mg/dl (Negative) mg/dL Urine Glucose (UA) Neg (Negative) mg/dL Urine Ketones Tr (Negative) mg/dL Urine Blood Neg (Negative) Urine Nitrite Neg (Negative) Urine Bilirubin Neg (Negative) Urine Urobilinogen < 2.0 (<2.0) mg/dL Ur Leukocyte Esterase Tr (Negative) Urine WBC (Auto) < 1.0 (0.0-6.0) /HPF Urine RBC (Auto) < 1.0 (0.0-6.0) /HPF - Radiology Data Radiology results: report reviewed CT abdomen pelvis w con INDICATION / CLINICAL INFORMATION: ABD PAIN; NO BM FOR SEVERAL DAYS. TECHNIQUE: All CT scans at this location are performed using CT dose reduction for ALARA by means of automated exposure control. COMPARISON: 04/13/2019 FINDINGS: Limited lower thoracic images show no acute findings. ABDOMEN: There are no significant abnormalities of the gallbladder, liver, spleen pancreas or kidneys. Pelvic images show fluid distention of the entire colon and rectum. There are edematous changes in the abdominal ileum that have the improved since the previous study. Mild residual colon wall thickening is noted in the hepatic flexure. The distal jejunum and ileum are moderately distended with fluid. No evidence of pneumatosis or free fluid collections in the pelvis. Skeletal structures are unremarkable for SI joint sclerosis. IMPRESSION: 1. Interval improvement of what appears to be regional enteritis with decreased edema of the distal small bowel and right colon. 2. There is moderate persistent fluid distention of mid and distal small bowel as well-seen entire colon. - Medical Decision Making Plan admit patient for further management due to persistent symptoms despite outpatient treatment. Also patient has significant drop in sodium and a 7 day period. Patient was a was produced a urine which shows dehydration as indicated by elevated specific gravity and ketones. Hospitalist for admission. - Differential Diagnosis colitis, diverticulitis, obstruction, ileus Critical Care Time: No Critical care attestation.: If time is entered above; I have spent that time in minutes in the direct care of this critically ill patient, excluding procedure time. ED Disposition Clinical Impression: Abdominal pain, Colitis, Hyponatremia, Dehydration Disposition: OP ADMIT IP TO THIS HOSP Is pt being admited?: Yes Condition: Stable Time of Disposition: 04:26 (Dr Roland/hosp)
[2019-04-21] MEDS ORDERED: ZOFRAN IV PRN (04:31)
[2019-04-21] MEDS ORDERED: SODIUM CHLORIDE FLUSH SYRINGE 10 ML IV PRN (04:31)
[2019-04-21] MEDS ORDERED: TYLENOL PO PRN (04:31)
[2019-04-21 04:38] LABS: Bilirubin,Urine NEG (Negative); Blood,Urine NEG (Negative); Color,Urine Straw (Yellow); Protein,Urine <15 mg/dL mg/dL (Negative); Urobilinogen,Urine < 2.0 mg/dL (<2.0); WBC,Urine < 1.0 /HPF (0.0-6.0)
--- NOTE | 2019-04-21 04:38 | History and Physical Report ---
<CASTRO DELGADO - Last Filed: 04/21/19 05:30> History of Present Illness Date of examination: 04/21/19 Date of admission: 04/21/2019 Chief complaint: Constipation and abdominal pain History of present illness: 58-year-old female with history of hypertension, schizophrenia, hypothyroidism, urinary retention, and colitis presents to [facility] ED with complaints of abdominal pain and constipation. Of note pt was seen in ED on 04/13/19 with similar complaints. She had a CT Abd/ Pelvis with contrast on 04/13 which showed that mild colitis with moderate colonic stool distally. She was prescribed Flagyl, Zofran, Magnesium Citrate, Bentyl, and Cipro, and was discharged. Pt states that she has been compliant with meds with exception to today's dose. However, she states that her symptoms have not improved. She continues to experience generalized abdominal pain, constipation with occasional nausea. Denies: fever, emesis, cough, hematuria, and full emptying of bowel Past History Past Medical History: hypertension, hypothyroidism, other (Allergies, ??Bowel Obstruction, Urinary retention, schizophrenia) Past Surgical History: tonsillectomy Social history: no significant social history Family history: no significant family history Medications and Allergies Allergies Allergy/AdvReac Type Severity Reaction Status Date / Time No Known Allergies Allergy Verified 04/13/19 23:59 Home Medications Medication Instructions Recorded Confirmed Last Taken Type Iron Carb,Gl/FA/B12/C/Docusate 1 each PO DAILY 02/01/18 04/21/19 04/20/19 10:30 History [Ferralet 90 Tablet] Levothyroxine [Synthroid] 100 mcg PO QAM 02/01/18 04/21/19 04/20/19 10:30 History Losartan/Hydrochlorothiazide 50 tab PO QDAY 02/01/18 04/21/19 04/20/19 10:30 History [Losartan-Hctz 50-12.5 mg Tab] Montelukast [Singulair] 10 mg PO QPM 02/01/18 04/21/19 04/20/19 09:30 History Tamsulosin [Flomax] 0.4 mg PO QDAY #30 cap 02/01/18 04/21/19 Unknown Rx cloZAPine [Clozapine] 100 mg PO DAILY 04/30/18 07/18/19 07/17/19 09:30 History HYDROcodone/APAP 5-325 [[place] 1 - 2 each PO Q6HR PRN #15 tablet 02/04/18 04/21/19 Unknown Rx 5-325 mg TAB] Phenazopyridine [Pyridium] 200 mg PO TID PRN #10 tab 02/04/18 04/21/19 Unknown Rx Dicyclomine [Bentyl] 20 mg PO Q6H PRN #24 tablet 04/14/19 04/21/19 Unknown Rx Magnesium Citrate [Citrate of 300 ml PO ONCE #2 bottle 04/14/19 04/21/19 Unknown Rx Magnesia] Ondansetron [Zofran ODT TAB] 4 mg PO Q8HR PRN #15 tab.rapdis 04/14/19 04/21/19 Unknown Rx levoFLOXacin [Levaquin] 750 mg PO QDAY #10 tablet 04/23/19 Unknown Rx metroNIDAZOLE [Flagyl TAB] 500 mg PO Q8H #30 tablet 04/23/19 Unknown Rx predniSONE [Deltasone] 10 mg PO .TAPER #20 tablet 04/23/19 Unknown Rx Active Meds: Active Medications Acetaminophen (Tylenol) 650 mg PO Q4H PRN PRN Reason: Pain MILD(1-3)/Fever >100.5/PORRAS Enoxaparin Sodium (Lovenox) 40 mg SUB-Q QDAY DUSTY Sodium Chloride (Nacl 0.9% 1000 Ml) 1,000 mls @ 100 mls/hr IV DIRECT DUSTY Ondansetron HCl (Zofran) 4 mg IV Q8H PRN PRN Reason: Nausea And Vomiting Sodium Chloride (Sodium Chloride Flush Syringe 10 Ml) 10 ml IV BID DUSTY Sodium Chloride (Sodium Chloride Flush Syringe 10 Ml) 10 ml IV PRN PRN PRN Reason: LINE FLUSH Review of Systems All systems: negative (reviewed and no additional unremarkable complaints except as noted below) Gastrointestinal: abdominal pain, constipation Genitourinary Female: other (decreased urination, difficulty with urination) Exam - Physical Exam Narrative exam: Physical exam General appearance: Present: No acute distress, alert and oriented 3, female - EENT Eyes: Present: PERRL, EOM intact ENT: hearing intact, normal dentition - Neck Neck: Present: supple, normal ROM - Respiratory Respiratory effort: Non-labored Respiratory: Clear throughout - Cardiovascular Heart rate: 93 (bpm) Rhythm: regular Heart Sounds: Present: S1 & S2. Absent: rub, click - Extremities Extremities: no ischemia, pulses intact, abnormal - Peripheral Assessment Peripheral Pulses: within normal limits - Abdominal General gastrointestinal: Rounded, soft, non-tender, normal bowel sounds - Integumentary Integumentary: Present: warm, dry - Musculoskeletal Musculoskeletal: Normal gait -Neurological Neurological: CNII-XII - Psychiatric Psychiatric: Anxious, cooperative - Constitutional Vitals: Temp Pulse Resp BP Pulse Ox 98 F 93 H 16 113/58 96 04/21/19 04:20 04/21/19 04:20 04/21/19 04:20 04/21/19 04:20 04/21/19 04:20 Results - Labs CBC & Chem 7: 04/20/19 21:39 04/20/19 21:39 Labs: Laboratory Last Values WBC 11.2 K/mm3 (4.5-11.0) H 04/20/19 21:39 RBC 4.23 M/mm3 (3.65-5.03) 04/20/19 21:39 Hgb 11.2 gm/dl (10.1-14.3) 04/20/19 21:39 Hct 33.7 % (30.3-42.9) 04/20/19 21:39 MCV 80 fl (79-97) 04/20/19 21:39 MCH 27 pg (28-32) L 04/20/19 21:39 MCHC 33 % (30-34) 04/20/19 21:39 RDW 15.5 % (13.2-15.2) H 04/20/19 21:39 Plt Count 455 K/mm3 (140-440) H 04/20/19 21:39 Sodium 127 mmol/L (137-145) L 04/20/19 21:39 Potassium 3.6 mmol/L (3.6-5.0) 04/20/19 21:39 Chloride 88.4 mmol/L (98-107) L 04/20/19 21:39 Carbon Dioxide 25 mmol/L (22-30) 04/20/19 21:39 17 mmol/L 04/20/19 21:39 BUN 14 mg/dL (7-17) 04/20/19 21:39 1.1 mg/dL (0.7-1.2) 04/20/19 21:39 Estimated GFR 51 ml/min 04/20/19 21:39 13 % 04/20/19 21:39 Glucose 104 mg/dL (65-100) H 04/20/19 21:39 Calcium 9.3 mg/dL (8.4-10.2) 04/20/19 21:39 0.20 mg/dL (0.1-1.2) 04/20/19 21:39 AST 26 units/L (5-40) 04/20/19 21:39 ALT 30 units/L (7-56) 04/20/19 21:39 98 units/L (35-129) 04/20/19 21:39 7.1 g/dL (6.3-8.2) 04/20/19 21:39 3.9 g/dL (3.9-5) 04/20/19 21:39 1.2 % 04/20/19 21:39 77 units/L (13-60) H 04/20/19 21:39 - Imaging and Cardiology Imaging and Cardiology: CT Abd Pelvis: FINDINGS: Limited lower thoracic images show no acute findings. ABDOMEN: There are no significant abnormalities of the gallbladder, liver, spleen pancreas or kidneys. Pelvic images show fluid distention of the entire colon and rectum. There are edematous changes in the abdominal ileum that have the improved since the previous study. Mild residual colon wall thickening is noted in the hepatic flexure. The distal jejunum and ileum are moderately distended with fluid. No evidence of pneumatosis or free fluid collections in the pelvis. Skeletal structures are unremarkable for SI joint sclerosis. IMPRESSION: 1. Interval improvement of what appears to be regional enteritis with decreased edema of the distal small bowel and right colon. 2. There is moderate persistent fluid distention of mid and distal small bowel as well-seen entire colon. Assessment and Plan Assessment and plan: 58-year-old female with history of hypertension, schizophrenia, hypothyroidism, urinary retention, and colitis presents to [facility] ED with complaints of abdominal pain and constipation for the past 7 days. She had a CT Abd/ Pelvis with contrast on 04/13 which showed that mild colitis with moderate colonic stool distally. Today's CT Abd/Pelvis shows distal jejunum and ileum are moderately distended with fluid, and edematous changes in the abdominal ileum have improved since the previous study. GI consulted. Will admit to medical floor. Hyponatremia Leukocytosis Colitis Chronic constipation Abdominal pain Hypertension Hypothyroidism History of schizophrenia Plan: Continue supportive care GI consulted (Dr. Armstrong) Give Fleet enema Na on admission 127, slowly correct with NS UA negative WBC 11.2, pt completed course of Cipro and Flagly, afebrile, will monitor WBC and hold off on abx Monitor BP DVT PPX on Lovenox Will resume home meds once Med reconciliation is completed Advance Directives: No VTE prophylaxis?: Chemical Plan of care discussed with patient/family: Yes <TIANNA LENTZ - Last Filed: 04/24/19 01:21> Medications and Allergies Active Meds: Active Medications Acetaminophen (Tylenol) 650 mg PO Q4H PRN PRN Reason: Pain MILD(1-3)/Fever >100.5/PORRAS Enoxaparin Sodium (Lovenox) 40 mg SUB-Q QDAY DUSTY Sodium Chloride (Nacl 0.9% 1000 Ml) 1,000 mls @ 100 mls/hr IV DIRECT DUSTY Ondansetron HCl (Zofran) 4 mg IV Q8H PRN PRN Reason: Nausea And Vomiting Sodium Chloride (Sodium Chloride Flush Syringe 10 Ml) 10 ml IV BID DUSTY Sodium Chloride (Sodium Chloride Flush Syringe 10 Ml) 10 ml IV PRN PRN PRN Reason: LINE FLUSH Exam - Constitutional Vitals: Temp Pulse Resp BP Pulse Ox 98 F 93 H 16 113/58 96 04/21/19 04:20 04/21/19 04:20 04/21/19 04:20 04/21/19 04:20 04/21/19 04:20 Results - Labs CBC & Chem 7: 04/22/19 06:06 04/23/19 05:11 Labs: Laboratory Last Values WBC 11.2 K/mm3 (4.5-11.0) H 04/20/19 21:39 RBC 4.23 M/mm3 (3.65-5.03) 04/20/19 21:39 Hgb 11.2 gm/dl (10.1-14.3) 04/20/19 21:39 Hct 33.7 % (30.3-42.9) 04/20/19 21:39 MCV 80 fl (79-97) 04/20/19 21:39 MCH 27 pg (28-32) L 04/20/19 21:39 MCHC 33 % (30-34) 04/20/19 21:39 RDW 15.5 % (13.2-15.2) H 04/20/19 21:39 Plt Count 455 K/mm3 (140-440) H 04/20/19 21:39 Sodium 127 mmol/L (137-145) L 04/20/19 21:39 Potassium 3.6 mmol/L (3.6-5.0) 04/20/19 21:39 Chloride 88.4 mmol/L (98-107) L 04/20/19 21:39 Carbon Dioxide 25 mmol/L (22-30) 04/20/19 21:39 17 mmol/L 04/20/19 21:39 BUN 14 mg/dL (7-17) 04/20/19 21:39 1.1 mg/dL (0.7-1.2) 04/20/19 21:39 Estimated GFR 51 ml/min 04/20/19 21:39 13 % 04/20/19 21:39 Glucose 104 mg/dL (65-100) H 04/20/19 21:39 Calcium 9.3 mg/dL (8.4-10.2) 04/20/19 21:39 0.20 mg/dL (0.1-1.2) 04/20/19 21:39 AST 26 units/L (5-40) 04/20/19 21:39 ALT 30 units/L (7-56) 04/20/19 21:39 98 units/L (35-129) 04/20/19 21:39 7.1 g/dL (6.3-8.2) 04/20/19 21:39 3.9 g/dL (3.9-5) 04/20/19 21:39 1.2 % 04/20/19 21:39 77 units/L (13-60) H 04/20/19 21:39 Straw (Yellow) 04/21/19 04:10 Clear (Clear) 04/21/19 04:10 7.0 (5.0-7.0) 04/21/19 04:10 Ur Specific [place] 1.026 (1.003-1.030) 04/21/19 04:10 <15 mg/dl mg/dL (Negative) 04/21/19 04:10 Neg mg/dL (Negative) 04/21/19 04:10 Tr mg/dL (Negative) 04/21/19 04:10 Neg (Negative) 04/21/19 04:10 Neg (Negative) 04/21/19 04:10 Neg (Negative) 04/21/19 04:10 < 2.0 mg/dL (<2.0) 04/21/19 04:10 Ur Leukocyte Esterase Tr (Negative) 04/21/19 04:10 < 1.0 /HPF (0.0-6.0) 04/21/19 04:10 < 1.0 /HPF (0.0-6.0) 04/21/19 04:10 Assessment and Plan Assessment and plan: 58-year-old woman with a history of hypertension, hypothyroidism, schizophrenia was seen in the emergency room on April 10 for abdominal pain and constipation. She was diagnosed with hepatitis and given Flagyl, ciprofloxacin and MiraLAX outpatient treatment. She returns today with his constipation is not improved. Plan as stated above in addition add fluid.restart antibiotics
[2019-04-21] MEDS ORDERED: FLEET PR ONE (05:22)
[2019-04-21 05:24] LABS: RBC,Urine < 1.0 /HPF (0.0-6.0)
[2019-04-21] MEDS ORDERED: FLAGYL ONE (07:46)
[2019-04-21] MEDS: FLAGYL PO SCH ×3 (08:00→23:42)
[2019-04-21] MEDS: NACL 0.9% 1000 ML 1,000 ML IV SCH (09:00)
[2019-04-21] MEDS: LEVAQUIN 750MG/150ML 750 MG/150 ML BAG IV SCH (09:05)
[2019-04-21] MEDS: SODIUM CHLORIDE FLUSH SYRINGE 10 ML IV SCH ×2 (09:08→23:43)
[2019-04-21] MEDS: LOVENOX SUB-Q SCH (09:08)
[2019-04-21] MEDS ORDERED: GOLYTELY PO ONE (14:22)
--- NOTE | 2019-04-21 14:22 | Gastroenterology Consultation ---
History of Present Illness - Reason for Consult Consult date: 04/21/19 abdominal pain Requesting physician: CLAIRE STEVENSON - History of Present Illness Patient is a 58 y/o female with PMH of HTN, schizophrenia, hypothyroidism, urinary retention, and colitis who presented to ED with recurrent complaints of abdominal pain and constipation after being seen on 04/13/19 for similar complaints with CT at that time showing mild colitis with moderate colonic stool distally. She was treated with antibiotics (flagyl/cipro) and magnesium citrate without improvement. Repeat CT this admission showed improvement in inflammation. This morning patient was resting in bed w/o acute distress. Reports feeling better with abd pain now improved and BM x 1 this am. No blood in stool. She states she had a similar episode in 2010 and was told she had ulcerative colitis after undergoing a colonoscopy by Dr. reyna (records unavailable). She was given Asacol to take, however her insurance would not cover the cost of medication so she stopped taking it and has not followed up with GI since that time. Denies fever, CP, SOB, wt loss, vomiting, signs of bleeding, or diarrhea. Her baseline bowel habit is BMs x 3-4 per day with semi- formed stool but she has been experiencing constipation with BM x 1/week with acute process. No known Fhx of IBD or colon cancer. Past History Past Medical History: other (as per HPI) Past Surgical History: tonsillectomy Social history: no significant social history Family history: no significant family history Medications and Allergies Allergies Allergy/AdvReac Type Severity Reaction Status Date / Time No Known Allergies Allergy Verified 04/13/19 23:59 Home Medications Medication Instructions Recorded Confirmed Last Taken Type Iron Carb,Gl/FA/B12/C/Docusate 1 each PO DAILY 02/01/18 04/21/19 04/20/19 10:30 History [Ferralet 90 Dual-Iron Tablet] Levothyroxine [Synthroid] 100 mcg PO QAM 02/01/18 04/21/19 04/20/19 10:30 History Losartan/Hydrochlorothiazide 50 tab PO QDAY 02/01/18 04/21/19 04/20/19 10:30 History [Losartan-Hctz 50-12.5 mg Tab] Montelukast [Singulair] 10 mg PO QPM 02/01/18 04/21/19 04/20/19 09:30 History Nitrofurantoin [place]/M-Cryst 100 mg PO Q12HR #14 capsule 02/01/18 04/21/19 Unknown Rx [Macrobid CAP] Tamsulosin [Flomax] 0.4 mg PO QDAY #30 cap 02/01/18 04/21/19 Unknown Rx Verapamil [Calan] 240 mg PO DAILY 02/01/18 04/21/19 04/20/19 09:30 History cloZAPine [Clozapine] 100 mg PO DAILY 02/01/18 04/21/19 04/20/19 09:30 History HYDROcodone/APAP 5-325 [[place] 1 - 2 each PO Q6HR PRN #15 tablet 02/04/18 04/21/19 Unknown Rx 5/325] Phenazopyridine [Pyridium] 200 mg PO TID PRN #10 tab 02/04/18 04/21/19 Unknown Rx Sulfamethoxazole/Trimethoprim 1 each PO BID #10 tablet 02/04/18 04/21/19 Unknown Rx [Bactrim DS TAB] Ciprofloxacin HCl [Cipro] 500 mg PO BID #14 tablet 02/08/18 04/21/19 Unknown Rx Ciprofloxacin HCl [Ciprofloxacin 500 mg PO Q12HR #20 tab 04/14/19 04/21/19 14:00 Rx TAB] Dicyclomine [Bentyl] 20 mg PO Q6H PRN #24 tablet 04/14/19 04/21/19 Unknown Rx Magnesium Citrate [Citrate of 300 ml PO ONCE #2 bottle 04/14/19 04/21/19 Unknown Rx Magnesia] Ondansetron [Zofran Odt] 4 mg PO Q8HR PRN #15 tab.rapdis 04/14/19 04/21/19 Unknown Rx metroNIDAZOLE [Flagyl] 500 mg PO Q8HR #30 tablet 04/14/19 04/21/19 04/20/19 14:00 Rx Active Meds: Active Medications Acetaminophen (Tylenol) 650 mg PO Q4H PRN PRN Reason: Pain MILD(1-3)/Fever >100.5/PORRAS Enoxaparin Sodium (Lovenox) 40 mg SUB-Q QDAY DUSTY Last Admin: 04/21/19 09:08 Dose: 40 mg Documented by: Sodium Chloride (Nacl 0.9% 1000 Ml) 1,000 mls @ 100 mls/hr IV DIRECT DUSTY Last Admin: 04/21/19 09:00 Dose: 100 mls/hr Documented by: Levofloxacin/Dextrose (Levaquin 750mg/150ml) 750 mg in 150 mls @ 100 mls/hr IV Q24HR [facility]; Protocol Last Admin: 04/21/19 09:05 Dose: 100 mls/hr Documented by: Metronidazole (Flagyl) 500 mg PO Q8H DUSTY; Protocol Last Admin: 04/21/19 08:00 Dose: 500 mg Documented by: Ondansetron HCl (Zofran) 4 mg IV Q8H PRN PRN Reason: Nausea And Vomiting Sodium Chloride (Sodium Chloride Flush Syringe 10 Ml) 10 ml IV BID [facility] Last Admin: 04/21/19 09:08 Dose: 10 ml Documented by: Sodium Chloride (Sodium Chloride Flush Syringe 10 Ml) 10 ml IV PRN PRN PRN Reason: LINE FLUSH medications reviewed/updated as required Review of Systems - Review of Systems All systems: negative Gastrointestinal: abdominal pain, nausea, constipation Exam - Constitutional Vital Signs: Temp Pulse Resp BP Pulse Ox 98.6 F 85 16 133/70 94 04/21/19 08:51 04/21/19 08:51 04/21/19 10:00 04/21/19 08:51 04/21/19 10:00 General appearance: no acute distress - EENT Eyes: PERRL, EOM intact ENT: hearing intact - Respiratory Respiratory effort: normal - Cardiovascular Rhythm: regular - Gastrointestinal General gastrointestinal: Present: soft, tender (slight TTP), non-distended, normal bowel sounds - Neurologic Neurological: alert and oriented x3 - Labs CBC & Chem 7: 04/20/19 21:39 04/20/19 21:39 Lab Results: Laboratory Results - last 24 hr 04/20/19 04/20/19 04/21/19 21:39 21:39 04:10 WBC 11.2 H RBC 4.23 Hgb 11.2 Hct 33.7 MCV 80 MCH 27 L MCHC 33 RDW 15.5 H Plt Count 455 H Sodium 127 L Potassium 3.6 Chloride 88.4 L Carbon Dioxide 25 Anion Gap 17 BUN 14 Creatinine 1.1 Estimated GFR 51 BUN/Creatinine Ratio 13 Glucose 104 H Calcium 9.3 Total Bilirubin 0.20 AST 26 ALT 30 Alkaline Phosphatase 98 Total Protein 7.1 Albumin 3.9 Albumin/Globulin Ratio 1.2 Lipase 77 H Urine Color Straw Urine Turbidity Clear Urine pH 7.0 Ur Specific [place] 1.026 Urine Protein <15 mg/dl Urine Glucose (UA) Neg Urine Ketones Tr Urine Blood Neg Urine Nitrite Neg Urine Bilirubin Neg Urine Urobilinogen < 2.0 Ur Leukocyte Esterase Tr Urine WBC (Auto) < 1.0 Urine RBC (Auto) < 1.0 Assessment and Plan 1.abdominal pain 2.constipation 3.colitis 4.H/o UC? -afebrile -WBC 11.2 -H/H 11.2/33.7 -LFTs WNL -CT 04/13/19 reviewed; repeat abd CT this admission showed internal improvement of what appears to be regional enteritis with decreased edema of the distal small bowel and right colon with moderate persistent fluid distention of mid and distal small bowel as well seen entire colon -etiology-patient presents with persistent abd pain and constipation after being treated 04/13/19 for colitis and constipation with antibiotics (flagyl/cipro) and magnesium citrate. She reports a hx of similar symptoms in 2010 with un dergoing a colonoscopy by Dr. Reyna at that time with a dx of what she believes was ulcerative colitis, however patient stopped taking recommended Asacol due to cost and has not followed up with GI since that time. -clinically, patient is stable. Reports abd pain now improving and BM x 1 this am. Denies N/V or signs of bleeding. -will schedule for colonoscopy tomorrow for further evaluation (r/o IBD) -okay for clears today then NPO after MN -hold am dose of lovenox -continue empiric antibiotics and supportive care -will consider steroid taper pending results of colonoscopy -will follow
--- NOTE | 2019-04-21 19:32 | Progress Note ---
Hospitalist Physical - Constitutional Vitals: Temp Pulse Resp BP Pulse Ox 98.3 F 81 16 129/60 95 04/21/19 17:12 04/21/19 17:12 04/21/19 17:12 04/21/19 17:12 04/21/19 17:12 Results - Labs CBC & Chem 7: 04/20/19 21:39 04/20/19 21:39 Labs: Laboratory Last Values WBC 11.2 K/mm3 (4.5-11.0) H 04/20/19 21:39 RBC 4.23 M/mm3 (3.65-5.03) 04/20/19 21:39 Hgb 11.2 gm/dl (10.1-14.3) 04/20/19 21:39 Hct 33.7 % (30.3-42.9) 04/20/19 21:39 MCV 80 fl (79-97) 04/20/19 21:39 MCH 27 pg (28-32) L 04/20/19 21:39 MCHC 33 % (30-34) 04/20/19 21:39 RDW 15.5 % (13.2-15.2) H 04/20/19 21:39 Plt Count 455 K/mm3 (140-440) H 04/20/19 21:39 Sodium 127 mmol/L (137-145) L 04/20/19 21:39 Potassium 3.6 mmol/L (3.6-5.0) 04/20/19 21:39 Chloride 88.4 mmol/L (98-107) L 04/20/19 21:39 Carbon Dioxide 25 mmol/L (22-30) 04/20/19 21:39 17 mmol/L 04/20/19 21:39 BUN 14 mg/dL (7-17) 04/20/19 21:39 1.1 mg/dL (0.7-1.2) 04/20/19 21:39 Estimated GFR 51 ml/min 04/20/19 21:39 13 % 04/20/19 21:39 Glucose 104 mg/dL (65-100) H 04/20/19 21:39 Calcium 9.3 mg/dL (8.4-10.2) 04/20/19 21:39 0.20 mg/dL (0.1-1.2) 04/20/19 21:39 AST 26 units/L (5-40) 04/20/19 21:39 ALT 30 units/L (7-56) 04/20/19 21:39 98 units/L (35-129) 04/20/19 21:39 7.1 g/dL (6.3-8.2) 04/20/19 21:39 3.9 g/dL (3.9-5) 04/20/19 21:39 1.2 % 04/20/19 21:39 77 units/L (13-60) H 04/20/19 21:39 Straw (Yellow) 04/21/19 04:10 Clear (Clear) 04/21/19 04:10 7.0 (5.0-7.0) 04/21/19 04:10 Ur Specific [place] 1.026 (1.003-1.030) 04/21/19 04:10 <15 mg/dl mg/dL (Negative) 04/21/19 04:10 Neg mg/dL (Negative) 04/21/19 04:10 Tr mg/dL (Negative) 04/21/19 04:10 Neg (Negative) 04/21/19 04:10 Neg (Negative) 04/21/19 04:10 Neg (Negative) 04/21/19 04:10 < 2.0 mg/dL (<2.0) 04/21/19 04:10 Ur Leukocyte Esterase Tr (Negative) 04/21/19 04:10 < 1.0 /HPF (0.0-6.0) 04/21/19 04:10 < 1.0 /HPF (0.0-6.0) 04/21/19 04:10 Active Medications - Current Medications Current Medications: Generic Name Dose Route Start Last Admin Trade Name Freq PRN Reason Stop Dose Admin Acetaminophen 650 mg 04/21/19 04:31 Tylenol PO Q4H PRN Pain MILD(1-3)/Fever >100.5/PORRAS Enoxaparin Sodium 40 mg 04/21/19 10:00 04/21/19 09:08 Lovenox SUB-Q 40 mg QDAY DUSTY Administration Sodium Chloride 1,000 mls @ 100 mls/hr 04/21/19 05:00 04/21/19 09:00 Nacl 0.9% 1000 Ml IV 100 mls/hr DIRECT DUSTY Administration Levofloxacin/Dextrose 750 mg in 150 mls @ 100 mls/hr 04/21/19 10:00 04/21/19 09:05 Levaquin 750mg/150ml IV 100 mls/hr Q24HR DUSTY Administration Protocol Metronidazole 500 mg 04/21/19 08:00 04/21/19 15:47 Flagyl PO 500 mg Q8H DUSTY Administration Protocol Ondansetron HCl 4 mg 04/21/19 04:31 Zofran IV Q8H PRN Nausea And Vomiting Sodium Chloride 10 ml 04/21/19 10:00 04/21/19 09:08 Sodium Chloride Flush Syringe 10 Ml IV 10 ml BID DUSTY Administration Sodium Chloride 10 ml 04/21/19 04:31 Sodium Chloride Flush Syringe 10 Ml IV PRN PRN LINE FLUSH
--- NOTE | 2019-04-21 19:33 | Event Note ---
Date: 04/21/19 -58-year-old female with history of hypertension, schizophrenia, hypothyroidism, urinary retention, and colitis presents to [facility] ED with complaints of abdominal pain and constipation for the past 7 days. She had a CT Abd/ Pelvis with contrast on 04/13 which showed that mild colitis with moderate colonic stool distally. Today's CT Abd/Pelvis shows distal jejunum and ileum are moderately distended with fluid, and edematous changes in the abdominal ileum have improved since the previous study. GI consulted. Assessment: Acute Colitis Hyponatremia Leukocytosis Chronic constipation Abdominal pain Hypertension Hypothyroidism History of schizophrenia Plan: I agree with current management F/U GI evaluation and recommendations
[2019-04-22] MEDS: NACL 0.9% 1000 ML 1,000 ML IV SCH ×2 (05:41→05:42)
[2019-04-22 06:22] LABS: Hematocrit 31.9 % (30.3-42.9); Hemoglobin 10.6 gm/dl (10.1-14.3); Mean Corpuscular HGB Conc 33 % (30-34); Mean Corpuscular Volume 80 fl (79-97); Platelet Count 448 K/mm3 (140-440); Red Blood Count 3.97 M/mm3 (3.65-5.03); Red Cell Distribution Width 15.7 % (13.2-15.2)
[2019-04-22 06:33] LABS: INR 1.2 (0.87-1.13)
[2019-04-22 06:48] LABS: Calcium 8.5 mg/dL (8.4-10.2)
[2019-04-22] MEDS: FLAGYL PO SCH (08:00)
[2019-04-22 08:48] LABS: Total Cells Counted 100
[2019-04-22 08:49] LABS: Anisocytosis Few; Ovalocytes Few; Platelet Estimate Consistent w Auto; Poikilocytosis Few
[2019-04-22] MEDS: LEVAQUIN 750MG/150ML 750 MG/150 ML BAG IV SCH (09:58)
[2019-04-22] MEDS: LOVENOX SUB-Q SCH (09:59)
[2019-04-22] MEDS: SODIUM CHLORIDE FLUSH SYRINGE 10 ML IV SCH (10:00)
[2019-04-22] MEDS ORDERED: NACL 0.9% 1000 ML 1,000 ML IV SCH (13:00)
[2019-04-22] MEDS ORDERED: K-DUR PO ONE (13:24)
--- NOTE | 2019-04-22 13:25 | Progress Note ---
Assessment and Plan Assessment and plan: --Acute colitis; Continue IV fluids, IV Levaquin and Flagyl Patient underwent colonoscopy and biopsy this morning findings as mentioned below S/P Colonoscopy: - colon/ileum anastomotic w/ ulceration (bx;s - scattered ulcers amll bowel (bx;s) - mild/moderate inflammation w/ scattered ulcers small bowel more significant distal colon (bx's) - stenosis rectum, passed - negative other GI soft Diet advance as tolerated Monitor overnight and discharge tomorrow morning if stable --Hyponatremia; present on admission Resolved, closely monitor electrolytes --Hypokalemia; replaced with KCl, monitor electrolytes --Chronic constipation; patient advised plenty of fluids and increase fiber Stool softeners as needed --h/o Hypertension; Patient is on multiple antihypertensives at home However patient's blood pressure size within normal limits during the hospital stay Closely monitor and adjust as needed --History of hypothyroidism; on Synthroid --History of schizophrenia; continue patient's psych medications Outpatient psych per schedule upon discharge --DVT prophylaxis Monitor closely and adjust management as needed Possible discharge tomorrow if stable Plan of care is reviewed with the patient and her nurse History Interval history: Patient seen and examined medical records reviewed Complaints of mild nausea and abdominal pain Nothing by mouth status On IV fluids and antibiotics GI evaluated and scheduled for colonoscopy today Patient is alert and awake oriented 3 Vital signs reviewed Hospitalist Physical - Constitutional Vitals: Temp Pulse Resp BP Pulse Ox 98.3 F 89 20 118/62 96 04/22/19 11:27 04/22/19 11:27 04/22/19 11:27 04/22/19 11:27 04/22/19 11:27 General appearance: Present: mild distress, well-nourished, obese - EENT Eyes: Present: PERRL, EOM intact - Neck Neck: Present: supple, normal ROM - Respiratory Respiratory effort: normal Respiratory: bilateral: diminished, negative: rales, rhonchi, wheezing - Cardiovascular Rhythm: regular Heart Sounds: Present: S1 & S2 - Extremities Extremities: no ischemia, No edema - Abdominal General gastrointestinal: soft, non-tender, non-distended, normal bowel sounds - Integumentary Integumentary: Present: clear, warm - Psychiatric Psychiatric: appropriate mood/affect, cooperative - Neurologic Neurologic: CNII-XII intact, moves all extremities Results - Labs CBC & Chem 7: 04/22/19 06:06 04/22/19 06:06 Labs: Laboratory Last Values WBC 5.7 K/mm3 (4.5-11.0) 04/22/19 06:06 RBC 3.97 M/mm3 (3.65-5.03) 04/22/19 06:06 Hgb 10.6 gm/dl (10.1-14.3) 04/22/19 06:06 Hct 31.9 % (30.3-42.9) 04/22/19 06:06 MCV 80 fl (79-97) 04/22/19 06:06 MCH 27 pg (28-32) L 04/22/19 06:06 MCHC 33 % (30-34) 04/22/19 06:06 RDW 15.7 % (13.2-15.2) H 04/22/19 06:06 Plt Count 448 K/mm3 (140-440) H 04/22/19 06:06 [place] % (Auto) Health Information Systems Technician 04/22/19 06:06 Add Manual Diff Complete 04/22/19 06:06 Total Counted 100 04/22/19 06:06 Seg Neuts % (Manual) 76.0 % (40.0-70.0) H 04/22/19 06:06 0 % 04/22/19 06:06 13.0 % (13.4-35.0) L 04/22/19 06:06 Reactive Lymphs % (Man) 0 % 04/22/19 06:06 9.0 % (0.0-7.3) H 04/22/19 06:06 1.0 % (0.0-4.3) 04/22/19 06:06 1.0 % (0.0-1.8) 04/22/19 06:06 0 % 04/22/19 06:06 0 % 04/22/19 06:06 0 % 04/22/19 06:06 0 % 04/22/19 06:06 Nucleated RBC % Not Reportable 04/22/19 06:06 Seg Neutrophils # Man 4.3 K/mm3 (1.8-7.7) 04/22/19 06:06 Band Neutrophils # 0.0 K/mm3 04/22/19 06:06 0.7 K/mm3 (1.2-5.4) L 04/22/19 06:06 Abs React Lymphs (Man) 0.0 K/mm3 04/22/19 06:06 0.5 K/mm3 (0.0-0.8) 04/22/19 06:06 0.1 K/mm3 (0.0-0.4) 04/22/19 06:06 0.1 K/mm3 (0.0-0.1) 04/22/19 06:06 0.0 K/mm3 04/22/19 06:06 0.0 K/mm3 04/22/19 06:06 0.0 K/mm3 04/22/19 06:06 Blast Cells # 0.0 K/mm3 04/22/19 06:06 WBC Morphology Not Reportable 04/22/19 06:06 Hypersegmented Neuts Not Reportable 04/22/19 06:06 Hyposegmented Neuts Not Reportable 04/22/19 06:06 Hypogranular Neuts Not Reportable 04/22/19 06:06 Not Reportable 04/22/19 06:06 Not Reportable 04/22/19 06:06 Not Reportable 04/22/19 06:06 Not Reportable 04/22/19 06:06 Not Reportable 04/22/19 06:06 Not Reportable 04/22/19 06:06 Consistent w auto 04/22/19 06:06 Not Reportable 04/22/19 06:06 Plt Clumps, EDTA Not Reportable 04/22/19 06:06 Not Reportable 04/22/19 06:06 Not Reportable 04/22/19 06:06 Not Reportable 04/22/19 06:06 Plt Morphology Comment Not Reportable 04/22/19 06:06 RBC Morphology Not Reportable 04/22/19 06:06 Dimorphic RBCs Not Reportable 04/22/19 06:06 Not Reportable 04/22/19 06:06 Not Reportable 04/22/19 06:06 Few 04/22/19 06:06 Few 04/22/19 06:06 Not Reportable 04/22/19 06:06 Not Reportable 04/22/19 06:06 Not Reportable 04/22/19 06:06 Not Reportable 04/22/19 06:06 Not Reportable 04/22/19 06:06 Not Reportable 04/22/19 06:06 Not Reportable 04/22/19 06:06 Few 04/22/19 06:06 Not Reportable 04/22/19 06:06 Not Reportable 04/22/19 06:06 Not Reportable 04/22/19 06:06 Not Reportable 04/22/19 06:06 Not Reportable 04/22/19 06:06 Not Reportable 04/22/19 06:06 Few 04/22/19 06:06 Acanthocytes (Spur) Not Reportable 04/22/19 06:06 Rouleaux Not Reportable 04/22/19 06:06 Not Reportable 04/22/19 06:06 Not Reportable 04/22/19 06:06 Not Reportable 04/22/19 06:06 Not Reportable 04/22/19 06:06 Hem Pathologist Commnt No 04/22/19 06:06 PT 14.9 Sec. (12.2-14.9) 04/22/19 06:06 INR 1.20 (0.87-1.13) H 04/22/19 06:06 Sodium 140 mmol/L (137-145) D 04/22/19 06:06 Potassium 3.1 mmol/L (3.6-5.0) L 04/22/19 06:06 Chloride 100.4 mmol/L (98-107) 04/22/19 06:06 Carbon Dioxide 27 mmol/L (22-30) 04/22/19 06:06 16 mmol/L 04/22/19 06:06 BUN 8 mg/dL (7-17) 04/22/19 06:06 1.2 mg/dL (0.7-1.2) 04/22/19 06:06 Estimated GFR 46 ml/min 04/22/19 06:06 7 % 04/22/19 06:06 Glucose 98 mg/dL (65-100) 04/22/19 06:06 Calcium 8.5 mg/dL (8.4-10.2) 04/22/19 06:06 0.20 mg/dL (0.1-1.2) 04/20/19 21:39 AST 26 units/L (5-40) 04/20/19 21:39 ALT 30 units/L (7-56) 04/20/19 21:39 98 units/L (35-129) 04/20/19 21:39 7.1 g/dL (6.3-8.2) 04/20/19 21:39 3.9 g/dL (3.9-5) 04/20/19 21:39 1.2 % 04/20/19 21:39 77 units/L (13-60) H 04/20/19 21:39 Straw (Yellow) 04/21/19 04:10 Clear (Clear) 04/21/19 04:10 7.0 (5.0-7.0) 04/21/19 04:10 Ur Specific [place] 1.026 (1.003-1.030) 04/21/19 04:10 <15 mg/dl mg/dL (Negative) 04/21/19 04:10 Neg mg/dL (Negative) 04/21/19 04:10 Tr mg/dL (Negative) 04/21/19 04:10 Neg (Negative) 04/21/19 04:10 Neg (Negative) 04/21/19 04:10 Neg (Negative) 04/21/19 04:10 < 2.0 mg/dL (<2.0) 04/21/19 04:10 Ur Leukocyte Esterase Tr (Negative) 04/21/19 04:10 < 1.0 /HPF (0.0-6.0) 04/21/19 04:10 < 1.0 /HPF (0.0-6.0) 04/21/19 04:10 Active Medications - Current Medications Current Medications: Generic Name Dose Route Start Last Admin Trade Name Freq PRN Reason Stop Dose Admin Acetaminophen 650 mg 04/21/19 04:31 Tylenol PO Q4H PRN Pain MILD(1-3)/Fever >100.5/PORRAS Enoxaparin Sodium 40 mg 04/21/19 10:00 04/22/19 09:59 Lovenox SUB-Q 40 mg QDAY DUSTY Administration Sodium Chloride 1,000 mls @ 100 mls/hr 04/21/19 05:00 04/22/19 05:42 Nacl 0.9% 1000 Ml IV 100 mls/hr DIRECT DUSTY Administration Levofloxacin/Dextrose 750 mg in 150 mls @ 100 mls/hr 04/21/19 10:00 04/22/19 09:58 Levaquin 750mg/150ml IV 100 mls/hr Q24HR DUSTY Administration Protocol Sodium Chloride 1,000 mls @ 50 mls/hr 04/22/19 13:00 Nacl 0.9% 1000 Ml IV DIRECT DUSTY Metronidazole 500 mg 04/21/19 08:00 04/22/19 08:00 Flagyl PO Not Given Q8H DUSTY Protocol Miscellaneous Medication 100 mg 04/22/19 10:00 Clozapine [Clozapine] PO DAILY DUSTY Ondansetron HCl 4 mg 04/21/19 04:31 Zofran IV Q8H PRN Nausea And Vomiting Potassium Chloride 40 meq 04/22/19 13:24 K-Dur PO 04/22/19 13:25 ONCE ONE Sodium Chloride 10 ml 04/21/19 10:00 04/21/19 23:43 Sodium Chloride Flush Syringe 10 Ml IV 10 ml BID DUSTY Administration Sodium Chloride 10 ml 04/21/19 04:31 Sodium Chloride Flush Syringe 10 Ml IV PRN PRN LINE FLUSH
[2019-04-22] MEDS ORDERED: XYLOCAINE MPF 2% ONE (14:30)
[2019-04-22] MEDS ORDERED: VERSED ONE (15:01)
[2019-04-22] MEDS ORDERED: DIPRIVAN 10 MG/ML IV ONE (15:01)
--- NOTE | 2019-04-22 16:07 | Post Operative Note ---
Pre-op diagnosis: colitis Post-op diagnosis: same Findings: Colon: 70 cm remaining colon - colon/ileum anastomotic w/ ulceration (bx;s ) - scattered ulcers amll bowel (bx;s) - mild/moderate inflammation w/ scattered ulcers small bowel more significant distal colon (bx's) - stenosis rectum, passed - negative other Procedure: colonoscopy w/ bx Anesthesia: MAC Surgeon: DIEGO KAYE Estimated blood loss: none Pathology: list Specimen disposition: to lab Condition: stable Disposition: floor
[2019-04-22] MEDS ORDERED: PYRIDIUM PO PRN (16:44)
[2019-04-22] MEDS ORDERED: SINGULAIR PO SCH (20:00)
--- NOTE | 2019-04-22 20:18 | Operative Report ---
PROCEDURE: Colonoscopy with cold biopsies. INDICATIONS: 1. Abdominal pain. 2. Colitis. MEDICATIONS: Propofol per TIMBER INCISOR OPERATOR. COMPLICATIONS: None. DESCRIPTION OF PROCEDURE: The patient was brought to the procedure suite. The patient had the procedure discussed with her at length. All risks, complications, and benefits were discussed after which the patient signed for the procedure performed. The patient was placed in left lateral decubitus position. Rectal exam performed prior to insertion of the scope. After adequate sedation medication as above, scope was inserted into the rectum and brought to the level of the cecum. Ileocecal valve, appendiceal orifice and cecal strap were adequately visualized. Colonoscope was then removed and mucosa of colon visualized. Prep quality for this procedure was fair. The patient's vital signs remained stable throughout the procedure. FINDINGS: There was noted to be approximately 70 cm of remaining colon. At that area, there was noted to be ileocolonic anastomosis end to side. The anastomosis site showed an ulcer around the rim of the anastomosis itself. Biopsies were taken and sent to pathology. The anastomosis was somewhat strictured and so full attempt of passing through ____ small intestine was not done. Visualized small intestine though was noted and you could see ulceration and inflammation in that area. Cold forceps were inserted and biopsy taken and sent to pathology. There was mild to moderate inflammation noted throughout the remaining colon, which was more worse ____ distal end of the colon, namely the rectum and rectosigmoid area. There were also scattered ulcers of 5-7 mm noted throughout the colon. Biopsies were taken throughout the colon and sent to pathology. There was also a stenotic area ulcer noted in the anal verge that was traversed with mild pressure. The patient tolerated the procedure well. No complications during the procedure. IMPRESSION: 1. A 70 cm of remaining colon noted. 2. Ileocolonic anastomosis with a white base ulcer around rim with some stricture with biopsies taken and sent to pathology. 3. Small intestine visualized through the anastomotic area with biopsies taken and sent to pathology. Area was ulcerated and inflamed. 4. Mild to moderate inflammation more progressively so distally of the colon with scattered ulcers. Biopsies were taken and sent to pathology. 5. Stenotic anal verge traversed. RECOMMENDATIONS: 1. Followup biopsy results. 2. Continue Levaquin and Flagyl. 3. Prednisone 5 mg p.o. daily. 4. Advance diet. 5. If stable in a.m., okay to discharge from GI standpoint. We will taper steroids with further management as an outpatient. JOB# [id number] CAB/NTS
[2019-04-22] MEDS: DELTASONE PO SCH (22:44)
[2019-04-23] MEDS: FLAGYL PO SCH ×4 (03:51→15:52)
[2019-04-23] MEDS: SODIUM CHLORIDE FLUSH SYRINGE 10 ML IV SCH ×2 (03:53→09:30)
[2019-04-23] MEDS: NACL 0.9% 1000 ML 1,000 ML IV SCH (05:17)
[2019-04-23] MEDS ORDERED: SYNTHROID PO SCH (06:00)
[2019-04-23 06:32] LABS: Hemolysis Index 0
[2019-04-23 06:56] LABS: BUN/Creatinine Ratio 6; Blood Urea Nitrogen 7 mg/dL (7-17); Calcium 8.6 mg/dL (8.4-10.2)
[2019-04-23] MEDS: LEVAQUIN 750MG/150ML 750 MG/150 ML BAG IV SCH (09:27)
[2019-04-23] MEDS: LOVENOX SUB-Q SCH (09:27)
[2019-04-23] MEDS: DELTASONE PO SCH (09:27)
[2019-04-23] MEDS ORDERED: FLOMAX PO SCH (10:00)
[2019-04-23] MEDS ORDERED: NON-FORMULARY (Clozapine [Clozapine] 100 MG) PO SCH ×2 (10:00→22:00)
--- NOTE | 2019-04-23 11:23 | Gastroenterology Progress Note ---
Assessment and Plan GI: pt reports overall better - colon w/ colitis, bx's pending - Prednisone 40mg po qd w/ taper 10 mg per week as outpt - levaquin/Flagyl po as outpt - ok to d/c from GI standpoint w/ follow up outpt - will sign off, call if needed Subjective Date of service: 04/23/19 Interval history: - reports feeling better, tolerating po Objective - Constitutional Vitals: Temp Pulse Resp BP Pulse Ox 98.6 F 93 H 20 133/66 93 04/23/19 05:19 04/23/19 05:19 04/23/19 05:19 04/23/19 05:19 04/23/19 05:19 General appearance: no acute distress - EENT Eyes: PERRL - Neck Neck: supple - Respiratory Respiratory: bilateral: CTA - Cardiovascular Rhythm: regular Heart Sounds: Present: S1 & S2 - Gastrointestinal General gastrointestinal: Present: soft, non-tender, non-distended - Labs CBC & Chem 7: 04/22/19 06:06 04/23/19 05:11 Labs: Laboratory Results - last 24 hr 04/23/19 05:11 Sodium 139 Potassium 4.0 D Chloride 62.5 L Carbon Dioxide 23 Anion Gap 15 BUN 7 Creatinine 1.1 Estimated GFR > 60 BUN/Creatinine Ratio 6 Glucose 144 H Calcium 8.6 Lipase 3 L
--- NOTE | 2019-04-23 11:52 | Discharge Summary ---
Providers - Providers Date of Admission: 04/21/19 07:40 Date of discharge: 04/23/19 Attending physician: BOYD MARIA 04/21/19 03:34 Consult to Physician [CONS] Stat Comment: Dr. Cerna spoke with Dr. Armstrong @ 0331 Consulting Provider: AAKASH ARMSTRONG Physician Instructions: Reason For Exam: abd pain Primary care physician: JESSE BRAUN Hospitalization Reason for admission: acute colitis /abdominal pain and constipation Condition: Stable Pertinent studies: CT abdomen and pelvis; Sacroiliac joint sclerosis Interval improvement of regional enteritis decreased edema Moderate persistent fluid distention of mid and distal small bowel Procedures: S/P Colonoscopy: - colon/ileum anastomotic w/ ulceration (bx;s - scattered ulcers amll bowel (bx;s) - mild/moderate inflammation w/ scattered ulcers small bowel more significant distal colon (bx's) - stenosis rectum, passed - negative other Hospital course: 58yr old female sent with history of hypertension, schizophrenia, hypothyroidism, urinary retention, and colitis was admitted to ED with comp laints of abdominal pain and constipation. Of note pt was seen in ED on 04/13/19 with similar complaints. She had a CT Abd/ Pelvis with contrast on 04/13 which showed that mild colitis with moderate colonic stool distally. She was prescribed Flagyl, Zofran, Magnesium Citrate, Bentyl, and Cipro, and was discharged. Pt states that she has been compliant with meds with exception to today's dose. However, she states that her symptoms have not improved. She continues to experience generalized abdominal pain, constipation with occasional nausea. Initial workup with CT scan was consistent with acute colitis. Admitted to the hospital appropriately managed with IV antibiotics nothing by mouth status, evaluated by GI, underwent colonoscopy findings are as mentioned below, GI advised GI soft diet as tolerated. Today patient is comfortable symptoms significantly improved, multiple electrolyte imbalances corrected, no new episodes of abdominal pain Tolerating soft diet, vital signs stable, physical examination prior to discharge is unremarkable Cleared by GI for discharge, follow-up with primary care physician and GI per schedule Patient was stable at discharge Discharge diagnosis: --Acute colitis; Continue IV fluids, IV Levaquin and Flagyl Patient underwent colonoscopy and biopsy this morning . S/P Colonoscopy: - colon/ileum anastomotic w/ ulceration (bx;s - scattered ulcers amll bowel (bx;s) - mild/moderate inflammation w/ scattered ulcers small bowel more significant distal colon (bx's) - stenosis rectum, passed - negative other GI soft Diet advance as tolerated Monitor overnight and discharge tomorrow morning if stable --Hyponatremia; present on admission Resolved, closely monitor electrolytes --Hypokalemia; replaced with KCl, monitor electrolytes --Chronic constipation; patient advised plenty of fluids and increase fiber Stool softeners as needed --h/o Hypertension; Patient is on multiple antihypertensives at home However patient's blood pressure size within normal limits during the hospital stay Closely monitor and adjust as needed --History of hypothyroidism; on Synthroid --History of schizophrenia; continue patient's psych medications Outpatient psych per schedule upon discharge --DVT prophylaxis Stable at discharge Disposition: DC-01 TO HOME OR SELFCARE Time spent for discharge: 32 min Core Measure Documentation - Palliative Care Palliative Care/ Comfort Measures: Not Applicable - Core Measures Any of the following diagnoses?: none Exam - Constitutional Vitals: Temp Pulse Resp BP Pulse Ox 98.6 F 93 H 20 133/66 93 04/23/19 05:04/23/19 05:04/23/19 05:04/23/19 05:04/23/19 05:19 General appearance: Present: no acute distress, well-nourished - EENT Eyes: Present: PERRL, EOM intact - Neck Neck: Present: supple, normal ROM - Respiratory Respiratory effort: normal Respiratory: bilateral: diminished, negative: rales, rhonchi, wheezing - Cardiovascular Rhythm: regular Heart Sounds: Present: S1 & S2 - Extremities Extremities: no ischemia, No edema - Abdominal General gastrointestinal: Present: soft, non-tender, non-distended, normal bowel sounds - Integumentary Integumentary: Present: clear, warm - Musculoskeletal Musculoskeletal: strength equal bilaterally - Psychiatric Psychiatric: appropriate mood/affect, cooperative - Neurologic Neurologic: moves all extremities Plan Activity: advance as tolerated Diet: advance as tolerated, other (Soft diet ,) Additional Instructions: Advance diet as tolerated. F/U GI per schedule Follow up with: JESSE BRAUN DO [Primary Care Provider] - 3-5 Days DIEGO KAYE MD [Staff Physician] - 7 Days Prescriptions: RX: predniSONE [Deltasone] 10 mg PO .TAPER #20 tablet RX: metroNIDAZOLE [Flagyl TAB] 500 mg PO Q8H #30 tablet levoFLOXacin [Levaquin] 750 mg PO QDAY #10 tablet
[2019-04-23 17:55] VITALS: BP 128/67
== END 2019-04-23 19:41 | disposition home or self-care (01) | DRG 394 ==
LOC: ED 21:25 → 3A 04-21 07:40
PROVIDERS: ADMIT Internal Medicine; ATTEND Internal Medicine
PROC: 0DBB8ZX Excision of Ileum, Via Natural or Artificial Opening Endoscopic, Diagnostic (ICD-10-PCS; principal; 2019-04-22)
PROC: 0DBN8ZX Excision of Sigmoid Colon, Via Natural or Artificial Opening Endoscopic, Diagnostic (ICD-10-PCS; 2019-04-22)
DX: K63.3 Ulcer of intestine (principal); E87.1 Hypo-osmolality and hyponatremia; K62.4 Stenosis of anus and rectum; K52.9 Noninfective gastroenteritis and colitis, unspecified; E86.0 Dehydration; I10 Essential (primary) hypertension; F20.9 Schizophrenia, unspecified; E03.9 Hypothyroidism, unspecified; K59.09 Other constipation; E87.6 Hypokalemia
CPT/HCPCS: 36415; 74177; 80048; 80053; 81001; 83690; 85007; 85025; 85027; 85610; 87086; 88305; 96361; 96374; G0378; J1650; J1956; J2250; J2405; J2704; J7030; J7512; Q9967

== ENCOUNTER 2019-08-23 12:42 | Outpatient (CLI) | payer OTHER ==
--- NOTE | 2019-08-24 10:52 | Mammography Report ---
DIGITAL SCREENING MAMMOGRAM WITH CAD, 08/23/2019 INDICATION: Routine screening mammography. TECHNIQUE: Digital bilateral 2D mammography was obtained in the craniocaudal and mediolateral obliq ue projections. This examination was interpreted with the benefit of Computer-Aided Detection analysi s. COMPARISON: 08/16/2018 FINDINGS: Breast Density: The breasts are heterogeneously dense, which may obscure small masses. There is no evidence of dominant mass, suspicious calcifications or architectural distortion in eithe r breast. IMPRESSION: No mammographic evidence of malignancy. Follow up recommendation: Routine yearly BI-RADS Category 1: Negative. A "normal" or negative report should not discourage follow up or biopsy of a clinically significant f inding. A written summary of these findings will be mailed to the patient. The patient will be entered into a mammography reporting system which will generate a reminder letter for the patient's next appointmen t at the appropriate interval. The [employer] recommends yearly mammograms starting at age 40 and continuing as l maggie as a woman is in good health. Breast MRI is recommended for women with an approximate 20-25% or greater lifetime risk of breast cancer, including women with a strong family history of breast or ova diogo cancer or who have been treated for Hodgkin's disease. Signer Name: Huber Correa MD Signed: 08/24/2019 10:47 AM Workstation Name: [id number]
== END 2019-08-23 12:43 | disposition home or self-care (01) ==
LOC: MAMMO 12:42
PROVIDERS: ATTEND Family Medicine
DX: Z12.31 Encounter for screening mammogram for malignant neoplasm of breast (principal)
CPT/HCPCS: 77067

== ENCOUNTER 2020-08-23 12:56 | Outpatient (CLI) | payer OTHER ==
--- NOTE | 2020-08-24 08:50 | Mammography Report ---
DIGITAL SCREENING MAMMOGRAM WITH CAD, 08/23/2020 CLINICAL INFORMATION / INDICATION: Routine screening mammography. TECHNIQUE: Digital bilateral 2D mammography was obtained in the craniocaudal and mediolateral obliqu e projections. This examination was interpreted with the benefit of Computer-Aided Detection analysis . COMPARISON: 08/23/2019, 08/16/2018 FINDINGS: Breast Density: The breasts are heterogeneously dense, which may obscure small masses. No dominant mass, suspicious calcifications, or architectural distortion in either breast. IMPRESSION: No mammographic evidence of malignancy. Follow up recommendation: Routine yearly BI-RADS Category 1: Negative. A "normal" or negative report should not discourage follow up or biopsy of a clinically significant f inding. A written summary of these findings will be mailed to the patient. The patient will be entered into a mammography reporting system which will generate a reminder letter for the patient's next appointmen t at the appropriate interval. The [employer] recommends yearly mammograms starting at age 40 and continuing as l maggie as a woman is in good health. Breast MRI is recommended for women with an approximate 20-25% or greater lifetime risk of breast cancer, including women with a strong family history of breast or ova diogo cancer or who have been treated for Hodgkin's disease. Signer Name: Baljeet Almonte MD Signed: 08/24/2020 8:45 AM Workstation Name: [email or web address]
== END 2020-08-23 12:57 | disposition home or self-care (01) ==
LOC: MAMMO 12:56
PROVIDERS: ATTEND Family Medicine
DX: Z12.31 Encounter for screening mammogram for malignant neoplasm of breast (principal)
CPT/HCPCS: 77067

== ENCOUNTER 2021-09-12 13:23 | Outpatient (CLI) | payer OTHER ==
--- NOTE | 2021-09-13 16:44 | Mammography Report ---
DIGITAL SCREENING MAMMOGRAM WITH CAD, 09/12/2021 CLINICAL INFORMATION / INDICATION: Routine screening mammography. TECHNIQUE: Digital bilateral 2D mammography was obtained in the craniocaudal and mediolateral obliqu e projections. This examination was interpreted with the benefit of Computer-Aided Detection analysis . COMPARISON: 08/23/2020, 08/23/2019 FINDINGS: Breast Density: The breasts are heterogeneously dense, which may obscure small masses. No dominant mass, suspicious calcifications, or architectural distortion in either breast. No interval change. IMPRESSION: No mammographic evidence of malignancy. Follow up recommendation: Routine yearly BI-RADS Category 1: Negative. A "normal" or negative report should not discourage follow up or biopsy of a clinically significant f inding. A written summary of these findings will be mailed to the patient. The patient will be entered into a mammography reporting system which will generate a reminder letter for the patient's next appointmen t at the appropriate interval. The [employer] recommends yearly mammograms starting at age 40 and continuing as l maggie as a woman is in good health. Breast MRI is recommended for women with an approximate 20-25% or greater lifetime risk of breast cancer, including women with a strong family history of breast or ova diogo cancer or who have been treated for Hodgkin's disease. Signer Name: Alla Mtz MD Signed: 09/13/2021 4:40 PM Workstation Name: [id number]
== END 2021-09-12 13:24 | disposition home or self-care (01) ==
LOC: MAMMO 13:23
PROVIDERS: ATTEND Family Medicine
DX: Z12.31 Encounter for screening mammogram for malignant neoplasm of breast (principal)
CPT/HCPCS: 77067

== ENCOUNTER 2022-04-16 21:24 | Emergency (ER) | payer OTHER ==
--- NOTE | 2022-04-17 11:21 | Emergency Department Report ---
ED General Adult HPI - General Chief complaint: Abdominal Pain Stated complaint: I am very constipated Time Seen by Provider: 04/17/22 10:48 Source: patient, RN notes reviewed, old records reviewed Mode of arrival: Ambulatory Limitations: No Limitations - History of Present Illness Initial comments: The patient was evaluated in the emergency department for symptoms described in the history of present illness. He/she was evaluated in the context of the global COVID-19 pandemic, which necessitated consideration that the patient might be at risk for infection with the virus that causes COVID-19. Institutional protocols and algorithms that pertain to the evaluation of patients at risk for COVID-19 are in a state of rapid change based on informatio n released by regulatory bodies including the CDC and federal and state organizations. These policies and algorithms were followed during the patient's care in the emergency department. Please note that these policies, procedures and recommendations changed on a rapid basis. During the history and physical examination, I am chaperoned by Demetrius Napier This is a 61-year-old female with a history of hypertension, schizophrenia, hypothyroidism, and chronic constipation. She had a colonoscopy a few years ago, which demonstrated: Ileum anastomotic with ulceration, small scattered ulcers in the small bowel, mild to moderate inflammation with scattered ulcers in the small bowel in the distal colon. The patient presents to the ER today with complaints of painless constipation for 4 to 5 days. She denies additional injuries and complaints. She denies vomiting, diarrhea, dysuria, and she denies starting new medications. She reports taking Colace [id number] at home -: Gradual, days(s) Consistency: constant Improves with: none Worsens with: none Associated Symptoms: denies other symptoms - Related Data Home Medications Medication Instructions Recorded Confirmed Last Taken Iron Carb,Gl/FA/B12/C/Docusate 1 each PO DAILY 02/01/18 04/21/19 04/20/19 10:30 [Ferralet 90 Tablet] Levothyroxine [Synthroid] 100 mcg PO QAM 02/01/18 04/21/19 04/20/19 10:30 Losartan/Hydrochlorothiazide 50 tab PO QDAY 02/01/18 04/21/19 04/20/19 10:30 [Losartan-Hctz 50-12.5 mg Tab] Montelukast [Singulair] 10 mg PO QPM 02/01/18 04/21/1904/20/19 09:30 cloZAPine [Clozapine] 100 mg PO DAILY 02/01/18 04/21/19 04/20/19 09:30 Previous Rx's Medication Instructions Recorded Last Taken Type Tamsulosin [Flomax] 0.4 mg PO QDAY #30 cap 02/01/18 Unknown Rx Phenazopyridine [Pyridium] 200 mg PO TID PRN #10 tab 02/04/18 Unknown Rx Magnesium Citrate [Citrate of 300 ml PO ONCE #2 bottle 04/14/19 Unknown Rx Magnesia] Ondansetron [Zofran ODT TAB] 4 mg PO Q8HR PRN #15 tab.rapdis 04/14/19 Unknown Rx levoFLOXacin [Levaquin] 750 mg PO QDAY #10 tablet 04/23/19 Unknown Rx metroNIDAZOLE [Flagyl TAB] 500 mg PO Q8H #30 tablet 04/23/19 Unknown Rx predniSONE 10 mg PO .TAPER #20 tablet 04/23/19 Unknown Rx polyethylene glycoL 3350 [Miralax 17 gm PO BID #60 packet 04/17/22 Unknown Rx 3350] Allergies Allergy/AdvReac Type Severity Reaction Status Date / Time No Known Allergies Allergy Verified 04/13/19 23:59 ED Review of Systems ROS: Stated complaint: ABD PAIN Other details as noted in HPI Comment: All other systems reviewed and negative Gastrointestinal: constipation. denies: abdominal pain, hematemesis, melena, hematochezia Genitourinary: denies: dysuria ED Past Medical Hx - Past Medical History Previous Medical History?: Yes Hx Hypertension: Yes Hx Congestive Heart Failure: No Hx Diabetes: No Hx Psychiatric Treatment: Yes (Schizophrenia) Hx Asthma: No Hx COPD: No Additional medical history: Thyroid Disease, Allergies, Bowel Obstruction. Urinary retention - Surgical History Past Surgical History?: Yes Additional Surgical History: Tonsilectomy - Social History Smoking Status: Never Smoker Substance Use Type: None - Medications Home Medications: Home Medications Medication Instructions Recorded Confirmed Last Taken Type Iron Carb,Gl/FA/B12/C/Docusate 1 each PO DAILY 02/01/18 04/21/19 04/20/19 10:30 History [Ferralet 90 Tablet] Levothyroxine [Synthroid] 100 mcg PO QAM 02/01/18 04/21/19 04/20/19 10:30 History Losartan/Hydrochlorothiazide 50 tab PO QDAY 02/01/18 04/21/19 04/20/19 10:30 History [Losartan-Hctz 50-12.5 mg Tab] Montelukast [Singulair] 10 mg PO QPM 02/01/18 04/21/19 04/20/19 09:30 History Tamsulosin [Flomax] 0.4 mg PO QDAY #30 cap 02/01/18 04/21/19 Unknown Rx cloZAPine [Clozapine] 100 mg PO DAILY 02/01/18 04/21/19 04/20/19 09:30 History Phenazopyridine [Pyridium] 200 mg PO TID PRN #10 tab 02/04/18 04/21/19 Unknown Rx Magnesium Citrate [Citrate of 300 ml PO ONCE #2 bottle 04/14/19 04/21/19 Unknown Rx Magnesia] Ondansetron [Zofran ODT TAB] 4 mg PO Q8HR PRN #15 tab.rapdis 04/14/19 04/21/19 Unknown Rx levoFLOXacin [Levaquin] 750 mg PO QDAY #10 tablet 04/23/19 Unknown Rx metroNIDAZOLE [Flagyl TAB] 500 mg PO Q8H #30 tablet 04/23/19 Unknown Rx predniSONE 10 mg PO .TAPER #20 tablet 04/23/19 Unknown Rx polyethylene glycoL 3350 [Miralax 17 gm PO BID #60 packet 04/17/22 Unknown Rx 3350] ED Physical Exam - General Limitations: No Limitations General appearance: alert, in no apparent distress - Head Head exam: Present: atraumatic, normocephalic - Eye Eye exam: Present: normal appearance, EOMI. Absent: nystagmus - ENT ENT exam: Present: normal exam, normal orophraynx, mucous membranes moist, normal external ear exam - Neck Neck exam: Present: normal inspection, full ROM. Absent: tenderness, meningismus - Respiratory Respiratory exam: Present: normal lung sounds bilaterally. Absent: respiratory distress, wheezes, rales, rhonchi, stridor, decreased breath sounds - Cardiovascular Cardiovascular Exam: Present: regular rate, normal rhythm, normal heart sounds. Absent: bradycardia, tachycardia, irregular rhythm, systolic murmur, diastolic murmur, rubs, gallop - GI/Abdominal GI/Abdominal exam: Present: soft. Absent: distended, tenderness, guarding, rebound, rigid, pulsatile mass - Rectal Rectal exam: Present: normal inspection, normal rectal tone, other (Patient provides verbal consent for rectal examination. Chaperoned by Demetrius Napier). Absent: decreased rectal tone, heme (-) stool, black stool, bloody stool, fecal impaction, tenderness - Extremities Exam Extremities exam: Present: normal inspection, full ROM, other (2+ pulses noted in the bilateral upper and lower extremities. There is no palpable cord. negative Homans sign. Muscular compartments are soft. The pelvis is stable.). Absent: pedal edema, calf tenderness - Back Exam Back exam: Present: normal inspection. Absent: tenderness, CVA tenderness (R), CVA tenderness (L), paraspinal tenderness, vertebral tenderness - Neurological Exam Neurological exam: Present: alert, oriented X3, other (No facial droop. Tongue midline. Extraocular movements intact bilaterally. Facial sensation intact to light touch in V1, V2, V3 distribution bilaterally. 5 and a 5 strength in 4 extremities. Sensation intact to light touch in 4 extremities.). Absent: motor sensory deficit - Psychiatric Psychiatric exam: Present: normal affect, normal mood - Skin Skin exam: Present: warm, dry, intact, normal color. Absent: rash ED Course Vital Signs 04/17/22 04/17/22 00:10 12:53 Temperature 98.7 F Pulse Rate 105 H 98 H Respiratory 16 Rate Blood Pressure 133/68 130/84 O2 Sat by Pulse 97 Oximetry - Pulse Oximetry Interpretation Digit-Finger Initial Pulse Oximetry Readin O2 Sat by Pulse Oximetry: 99 Actions Taken: none ED Medical Decision Making - Lab Data Result diagrams: 04/17/22 11:08 04/17/22 11:08 Vital Signs 04/17/22 04/17/22 00:10 12:53 Temperature 98.7 F Pulse Rate 105 H 98 H Respiratory 16 Rate Blood Pressure 133/68 130/84 O2 Sat by Pulse 97 Oximetry Lab Results 04/17/22 04/17/22 Range/Units 11:08 11:08 WBC 7.9 (4.5-11.0) K/mm3 RBC 4.46 (3.65-5.03) M/mm3 Hgb 13.3 (10.1-14.3) gm/dl Hct 39.5 (30.3-42.9) % MCV 89 (79-97) fl MCH 30 (28-32) pg MCHC 34 (30-34) % RDW 14.6 (13.2-15.2) % Plt Count 440 (140-440) K/mm3 Sodium 135 L (137-145) mmol/L Potassium 4.1 (3.6-5.0) mmol/L Chloride 99.5 (98-107) mmol/L Carbon Dioxide 21 L (22-30) mmol/L Anion Gap 19 mmol/L BUN 21 H (7-17) mg/dL Creatinine 1.2 (0.6-1.2) mg/dL Estimated GFR 45 ml/min BUN/Creatinine Ratio 18 % Glucose 91 (65-100) mg/dL Calcium 9.2 (8.4-10.2) mg/dL Total Bilirubin 0.20 (0.1-1.2) mg/dL AST 17 (5-40) units/L ALT 15 (7-56) units/L Alkaline Phosphatase 106 (35-129) units/L Total Protein 6.7 (6.3-8.2) g/dL Albumin 3.9 (3.9-5) g/dL Albumin/Globulin Ratio 1.4 % - Radiology Data Radiology results: pending, report reviewed, image reviewed CT ABDOMEN AND PELVIS WITHOUT CONTRAST INDICATION: No bm for 4 days, consti pation versus SBO CONTRAST: Without IV COMPARISON: 04/21/[address] scans at this location are performed using CT dose reduction for ALARA by means of automated exposure control. FINDINGS: Lung bases are clear. No pneumoperitoneum. No significant herniation. No lymphadenopathy. Heavy atherosclerotic changes. Mild focal ectasia of the left common iliac artery diameter of 14 mm but no true aneurysmal dilatation seen. No free fluid. Liver shows mild fatty infiltration and is at the upper en d of the normal range in size with length of 17.7 cm. No obvious focal lesions are seen. Spleen shows calcified granulomata but no enlargement. No abnormalities seen of the gallbladder, bile ducts, pancreas, or adrenals. Left kidney shows areas of scarring and focal atrophy mild focal atrophy in the right kidney. Water density small cyst is seen in the left kidney midpole laterally. Tiny cortical calcification medially and anteriorly and areas of thinning may be dystrophic. No definite urinary tract calculi or evidence of obstruction. Increase dual is seen in the distal colon with probable rectal impaction. The perirectal fat appears mildly indurated and there may be an element of stercoral colitis. More proximally the colon is distended though not truly dilated. Cecum is of normal caliber. The proximal transverse colon, hepatic flexure, and right colon show possible mild wall edema. Distal ileum extending to the ileocecal valve is distended and shows moderate wall thickening. No gas is seen within bowel wall. The small bowel proximal to the distal ileum is mildly distended but not dilated and I do not believe there is mechanical small bowel obstruction. No evidence of perforation or abscess. No fistula is seen. No significant abdominal wall herniation is noted. IMPRESSION: 1. Evidence of moderate distal constipation/rectal impaction, possibly with mild stercoral colitis 2. Proximal portions of the colon show probable mild colitis and the distal ileum shows evidence of moderate ileitis. I do not see obvious complication. Signer Name: Sohan Romano MD Signed: 04/17/2022 12:17 PM Workstation Name: [employer] - Medical Decision Making Differential diagnosis, including but not limited to: Constipation, obstruction Assessment and plan: 61-year-old female with chronic constipation. She is afebrile, with reassuring vital signs. CT scan of the abdomen pelvis confirms constipation. Rectal examination performed, do not appreciate significant stool in the rectal vault. Patient educated as to the natural history of chronic constipation. Diet and lifestyle modifications are recommended. She will receive a soapsuds enema here in the department. We will start her on MiraLAX. She will need to follow-up with outpatient GI or primary care for chronic constipation. Do not clinically suspect acute colitis, diverticulitis, or acute surgical process. Would not initiate antibiotics at this time. Discussed all findings with patient. She articulates understanding. She endorses readiness for discharge. Critical care attestation.: If time is entered above; I have spent that time in minutes in the direct care of this critically ill patient, excluding procedure time. ED Disposition Clinical Impression: Constipation Qualifiers: Constipation type: other constipation type Qualified Code(s): K59.09 - Other constipation Disposition: 01 HOME / SELF CARE / HOMELESS Is pt being admited?: No Does the pt Need Aspirin: No Condition: Good Instructions: Abdominal Pain (ED), Chronic Constipation Additional Instructions: Patient should drink 4 to 6 cups of water per day indefinitely. Please consume plenty of fiber, vegetables, and lean protein. Symptoms of constipation may take up to 6 to 8 weeks to completely resolve with appropriate diet and lifestyle modifications. Please take the MiraLAX as directed. Patient may consume prune juice [id number] as needed. Please follow-up with a primary care doctor or GI physician within the next 7 to 10 days. Please return to the emergency room right away with new pain, worsened pain, migration of pain, projectile vomiting, change in mental status, confusion, inability tolerate liquid feeds, new, worsened or different symptoms not present on the initial emergency room evaluation Referrals: [facility] [Provider Group] - 3-5 Days [facility] [Provider Group] - 3-5 Days Forms: Work/School Release Form(ED)
[2022-04-17 11:36] LABS: Hematocrit 39.5 % (30.3-42.9); Hemoglobin 13.3 gm/dl (10.1-14.3); Mean Corpuscular HGB Conc 34 % (30-34); Mean Corpuscular Volume 89 fl (79-97); Platelet Count 440 K/mm3 (140-440); Red Blood Count 4.46 M/mm3 (3.65-5.03); Red Cell Distribution Width 14.6 % (13.2-15.2)
[2022-04-17 11:57] LABS: Albumin 3.9 g/dL (3.9-5); Calcium 9.2 mg/dL (8.4-10.2)
--- NOTE | 2022-04-17 13:21 | Cat Scan Report ---
CT ABDOMEN AND PELVIS WITHOUT CONTRAST INDICATION: No bm for 4 days, constipation versus SBO CONTRAST: Without IV COMPARISON: 04/21/[address] scans at this location are performed using CT dose reduction for ALARA by means of automated e xposure control. FINDINGS: Lung bases are clear. No pneumoperitoneum. No significant herniation. No lymphadenopathy. H eavy atherosclerotic changes. Mild focal ectasia of the left common iliac artery diameter of 14 mm bu t no true aneurysmal dilatation seen. No free fluid. Liver shows mild fatty infiltration and is at the upper end of the normal range in size with length o f 17.7 cm. No obvious focal lesions are seen. Spleen shows calcified granulomata but no enlargement. No abnormalities seen of the gallbladder, bile ducts, pancreas, or adrenals. Left kidney shows areas of scarring and focal atrophy mild focal atrophy in the right kidney. Water density small cyst is see n in the left kidney midpole laterally. Tiny cortical calcification medially and anteriorly and areas of thinning may be dystrophic. No definite urinary tract calculi or evidence of obstruction. Increase dual is seen in the distal colon with probable rectal impaction. The perirectal fat appears mildly indurated and there may be an element of stercoral colitis. More proximally the colon is diste nded though not truly dilated. Cecum is of normal caliber. The proximal transverse colon, hepatic fle xure, and right colon show possible mild wall edema. Distal ileum extending to the ileocecal valve is distended and shows moderate wall thickening. No gas is seen within bowel wall. The small bowel prox imal to the distal ileum is mildly distended but not dilated and I do not believe there is mechanical small bowel obstruction. No evidence of perforation or abscess. No fistula is seen. No significant a bdominal wall herniation is noted. IMPRESSION: 1. Evidence of moderate distal constipation/rectal impaction, possibly with mild stercoral colitis 2. Proximal portions of the colon show probable mild colitis and the distal ileum shows evidence of m oderate ileitis. I do not see obvious complication. Signer Name: Sohan Romano MD Signed: 04/17/2022 1:17 PM Workstation Name: Ryan
[2022-04-17] MEDS ORDERED: POLYETHYLENE GLYCOL 3350 17 GM POWDER PO SCH (14:00)
[2022-04-18 05:39] VITALS: BP 126/78
== END 2022-04-18 05:40 | disposition home or self-care (01) ==
LOC: ED 21:24
DX: K59.00 Constipation, unspecified (principal); I10 Essential (primary) hypertension
CPT/HCPCS: 36415; 74176; 80053; 85027; 99284